=== PATIENT | male | born 1965 | race Caucasian/White ===

== ENCOUNTER 2020-04-15 06:12 | Outpatient (REF) | payer OTHER, SELFPAY ==
[2020-04-15 11:16] LABS: MANUAL DIFF FLAG NO
[2020-04-15 11:29] LABS: Basophils Percent Auto 0.4 % (0-2); Eosinophils Absolute Auto 0.1 X10*3/uL (0.0-0.4); Eosinophils Percent Auto 1.3 % (0-4); Hematocrit 42.9 % (42-52); Hemoglobin 14.5 g/dl (14.0-18.0); Imm Gran Abs Auto 0.03 X10*3/uL (0.00-0.03); Imm Gran Pct Auto 0.4 % (0.0-0.4); Lymphocytes Absolute Auto 1.9 X10*3/uL (1.2-4.9); Lymphocytes Percent Auto 28.1 % (20-40); Mean Corpuscular HGB Conc 33.8 g/dl (31.0-36.0); Mean Corpuscular Volume 88.8 fL (80-98); Mean Platelet Volume 9.4 fL (9.4-12.4); Monocytes Absolute Auto 0.5 X10*3/uL (0.1-1.2); Monocytes Percent Auto 7.3 % (2-11); Neutrophils Absolute Auto 4.3 X10*3/uL (2.0-8.3); Neutrophils Percent Auto 62.5 % (45-73); Platelet Count 217 X10*3/uL (160-400); Red Blood Count 4.83 X10*6/uL (4.60-5.80); Red Cell Distribution Width 12.5 % (11.0-16.0); White Blood Count 6.9 X10*3/uL (4.8-10.8)
[2020-04-15 11:56] LABS: Alanine Aminotransferase 87 U/L (0-40); Albumin Level 4.1 g/dL (3.5-5.0); Alkaline Phosphatase 83 U/L (39-117); Anion Gap 12 (12-20); Aspartate Amino Transferase 47 U/L (5-37); Bilirubin Total 0.6 mg/dL (0.0-1.0); Blood Urea Nitrogen 16 mg/dL (9-16); Calcium 8.7 mg/dL (8.4-10.2); Carbon Dioxide 30 mmol/L (22-29); Chloride 103 mmol/L (96-108); Cholesterol 168 mg/dL; Estimated Glomerular Filt Rate > 60; Glucose Fasting 111 mg/dL (60-99); HDL Cholesterol 41 mg/dL; LDL Cholesterol Calculated 108 mg/dl; Potassium 3.9 mmol/l (3.3-5.1); Sodium 141 mmol/L (135-145); Total Protein 6.5 g/dL (6.5-8.0); Triglycerides 99 mg/dL
[2020-04-15 12:18] LABS: Prostate Specific Antigen 0.81 ng/mL (<0.05-4.0); Thyroid Stimulating Hormone 2.07 mIU/mL (0.32-4.0); Vitamin D 25-OH Total 32.7 ng/mL (>30)
== END 2020-04-15 06:13 | disposition home or self-care (01) ==
LOC: HO.HMGCLDS 06:12
PROVIDERS: PCP Internal Medicine; Visit Provider Internal Medicine
DX: I10 Essential (primary) hypertension (principal); E55.9 Vitamin D deficiency, unspecified; E66.01 Morbid (severe) obesity due to excess calories
CPT/HCPCS: 36415; 80053; 80061; 82306; 84153; 84443; 85025

== ENCOUNTER 2021-03-25 06:02 | Outpatient (REF) | payer OTHER, SELFPAY ==
[2021-03-25 11:29] LABS: Appearance Urine CLOUDY; Color Urine YELLOW; Glucose Urine UA NEG (NEG); Leukocyte Esterase Urine NEG (NEG); MANUAL DIFF FLAG NO; Nitrite Urine NEG (NEG); Specific Gravity - Urine >= 1.030 (1.005-1.025); Urine Blood NEG (NEG); Urine Ketones NEG (NEG); Urine Protein 1+ MG/DL (NEG-TRACE)
[2021-03-25 11:35] LABS: Basophils Percent Auto 0.6 % (0-2); Eosinophils Absolute Auto 0.1 X10*3/uL (0.0-0.4); Eosinophils Percent Auto 1.1 % (0-4); Hematocrit 42.8 % (42-52); Hemoglobin 14.5 g/dl (14.0-18.0); Imm Gran Abs Auto 0.04 X10*3/uL (0.00-0.03); Imm Gran Pct Auto 0.6 % (0.0-0.4); Lymphocytes Absolute Auto 2.3 X10*3/uL (1.2-4.9); Lymphocytes Percent Auto 31.6 % (20-40); Mean Corpuscular HGB Conc 33.9 g/dl (31.0-36.0); Mean Corpuscular Hemoglobin 30.3 pg (27.0-33.0); Mean Corpuscular Volume 89.4 fL (80-98); Mean Platelet Volume 9.5 fL (9.4-12.4); Monocytes Absolute Auto 0.6 X10*3/uL (0.1-1.2); Monocytes Percent Auto 8.1 % (2-11); Neutrophils Absolute Auto 4.2 X10*3/uL (2.0-8.3); Platelet Count 227 X10*3/uL (160-400); Red Blood Count 4.79 X10*6/uL (4.60-5.80); Red Cell Distribution Width 12.8 % (11.0-16.0); White Blood Count 7.3 X10*3/uL (4.8-10.8)
[2021-03-25 11:55] LABS: Alanine Aminotransferase 71 U/L (0-40); Albumin Level 4.2 g/dL (3.5-5.0); Alkaline Phosphatase 83 U/L (39-117); Anion Gap 14 (12-20); Aspartate Amino Transferase 55 U/L (5-37); Bilirubin Total 0.5 mg/dL (0.0-1.0); Blood Urea Nitrogen 17 mg/dL (9-16); Calcium 8.8 mg/dL (8.4-10.2); Carbon Dioxide 25 mmol/L (22-29); Chloride 106 mmol/L (96-108); Cholesterol 155 mg/dL; Estimated Glomerular Filt Rate > 60; Glucose Fasting 114 mg/dL (60-99); HDL Cholesterol 35 mg/dL; LDL Cholesterol Calculated 101 mg/dl; Potassium 3.9 mmol/L (3.3-5.1); Sodium 141 mmol/L (135-145); Total Protein 6.8 g/dL (6.5-8.0); Triglycerides 97 mg/dL
[2021-03-25 12:08] LABS: PSA,Total (Free>4and<10) 0.42 ng/mL (0.00-4.00); Thyroid Stimulating Hormone 2.34 uIU/mL (0.32-4.0); Vitamin D 25-OH Total 34.9 ng/mL (>30)
[2021-03-25 12:16] LABS: Amorphous Sediment Urine 3+ /LPF; Mucus Urine 3+ /LPF; RBC Urine 0 /HPF (0); WBC Urine 0 /HPF (0-4)
== END 2021-03-25 06:03 | disposition home or self-care (01) ==
LOC: HO.HMGCLDS 06:02
PROVIDERS: PCP Internal Medicine; Visit Provider Internal Medicine
DX: Z00.00 Encounter for general adult medical examination without abnormal findings (principal); Z12.5 Encounter for screening for malignant neoplasm of prostate; I10 Essential (primary) hypertension; I49.9 Cardiac arrhythmia, unspecified; E66.01 Morbid (severe) obesity due to excess calories; E55.9 Vitamin D deficiency, unspecified
CPT/HCPCS: 36415; 80053; 80061; 81001; 82306; 84153; 84443; 85025

== ENCOUNTER → 2022-04-03 07:23 | Outpatient (REF) | payer OTHER, SELFPAY ==
--- NOTE | 2022-04-03 07:27 | HM_ITS ---
* Total monitoring time 2 days and 21 hours. * Underlying rhythm is atrial fibrillation. Average rate 84/Min. Range 53 to 212/min. * About 8% the time, rate > 100/Min. * Frequent PVCs noted with a burden of 3%. Some couplets, some runs, longest 4 beats. Cannot exclude aberrant conduction in some areas.. * No significant bradycardia or pauses. * No patient diary. * Message left with answering service of , ordering physician. [facility]
== END ==
LOC: HO.CARD 07:23
PROVIDERS: PCP Internal Medicine; Visit Provider Internal Medicine
DX: I49.9 Cardiac arrhythmia, unspecified (principal); I10 Essential (primary) hypertension
CPT/HCPCS: 93242

== ENCOUNTER → 2022-04-12 06:08 | Outpatient (REF) | payer OTHER, SELFPAY ==
[2022-04-12 11:17] LABS: Appearance Urine Clear; Color Urine Yellow; Glucose Urine UA Negative (Negative); Leukocyte Esterase Urine Trace (Negative); Nitrite Urine Negative (Negative); PH 5.5 (5.0-9.0); Specific Gravity - Urine 1.025 (1.005-1.025); UMIC TRIGGER UA YES; Urine Blood Negative (Negative); Urine Ketones Negative (Negative); Urine Protein 30 (1+) mg/dL (Neg-Trace)
[2022-04-12 11:19] LABS: MANUAL DIFF FLAG NO
[2022-04-12 11:24] LABS: Bacteria Urine None Seen (None Seen); Hyaline Casts Urine 0-2 /LPF (0-2); RBC Urine 0-2 /HPF (0-2); Squamous Epithelial Cell Urine 0-2 /HPF (0-2); WBC Urine 0-5 /HPF (0-5)
[2022-04-12 11:27] LABS: Basophils Percent Auto 0.4 % (0-2); Eosinophils Absolute Auto 0.1 X10*3/uL (0.0-0.4); Hematocrit 43.7 % (42.0-52.0); Hemoglobin 15.3 g/dl (14.0-18.0); Imm Gran Abs Auto 0.03 X10*3/uL (0.00-0.03); Imm Gran Pct Auto 0.4 % (0.0-0.4); Lymphocytes Absolute Auto 1.9 X10*3/uL (1.2-4.9); Lymphocytes Percent Auto 26.5 % (20-40); Mean Corpuscular Hemoglobin 30.8 pg (27.0-33.0); Mean Corpuscular Volume 87.9 fL (80.0-98.0); Mean Platelet Volume 9.3 fL (9.4-12.4); Monocytes Absolute Auto 0.6 X10*3/uL (0.1-1.2); Neutrophils Absolute Auto 4.4 x10*3/uL (2.0-8.3); Neutrophils Percent Auto 63.7 % (45-73); Platelet Count 216 X10*3/uL (160-400); Red Blood Count 4.97 X10*6/uL (4.60-5.80); Red Cell Distribution Width 11.9 % (11.0-16.0)
[2022-04-12 11:46] LABS: Alanine Aminotransferase 36 U/L (0-40); Albumin Level 4.2 g/dL (3.5-5.0); Alkaline Phosphatase 64 U/L (39-117); Anion Gap 15 (12-20); Aspartate Amino Transferase 28 U/L (5-37); Bilirubin Total 0.6 mg/dL (0.0-1.0); Blood Urea Nitrogen 18 mg/dL (9-16); Carbon Dioxide 24 mmol/L (22-29); Chloride 106 mmol/L (96-108); Cholesterol 157 mg/dL; Estimated Glomerular Filt Rate > 60; Glucose Fasting 115 mg/dL (60-99); HDL Cholesterol 40 mg/dL; LDL Cholesterol Calculated 105 mg/dl; Potassium 3.7 mmol/L (3.3-5.1); Sodium 141 mmol/L (135-145); Total Protein 6.6 g/dL (6.5-8.0); Triglycerides 63 mg/dL
[2022-04-12 12:38] LABS: Thyroid Stimulating Hormone 2.11 uIU/mL (0.32-4.0); Vitamin D 25-OH Total 32.7 ng/mL (>30)
[2022-04-12 13:09] LABS: PSA,Total (Free>4and<10) 0.37 ng/mL (0.00-4.00)
--- NOTE | 2022-04-12 13:11 | CA_ITS ---
Transthoracic Echocardiogram Patient (Last, First, Middle): Bryan Mcmullen D Gender: Male Date of : 1965 Age: 56 Procedure Date: 04/12/2022 Procedure Type: Transthoracic Echocardiogram Location: OP Height: 175.26 cm Weight: 124.74 kg BSA: 2.37 m2 Heart Rate: 80 bpm BP: 144 / 80 mmHg Associate Data Scientist: Referring MD: Lalito Jones DO Symptoms: I10 HTN, I49.9 VENTRICULAR BIGEMINY Study Quality: Adequate ECG Rhythm: Atrial Fibrillation Conclusions: - The left ventricular systolic function is moderately decreased. The calculated ejection fraction is 34% by biplane method. - No obvious valvular pathology seen on this study. Findings Left Ventricle Normal left ventricular cavity size. The left ventricular systolic function is moderately decreased. The calculated ejection fraction is 34% by biplane method. There is moderate global hypokinesis. Diastolic function is indeterminate on the basis of available data. There is mild septal and mild basal asymmetric hypertrophy. Right Ventricle Normal right ventricular cavity size. There is mildly decreased right ventricular systolic function. Atria The left atrium is mildly dilated. The right atrium is normal in size. Aortic Valve There is a normal trileaflet aortic valve. There is no aortic valve stenosis. There is no aortic valve regurgitation. Mitral Valve There is mild mitral annular calcification. There is mild mitral valve regurgitation. There is no mitral valve stenosis. Pulmonic Valve The pulmonic valve is likely normal. There is trace pulmonic valve regurgitation. Tricuspid Valve Normal tricuspid valve structure. There is mild tricuspid valve regurgitation. There is no evidence of pulmonary hypertension. Great Vessels The asc aorta is normal in size. Venous The inferior vena cava is mildly dilated and collapses greater than 50% with inspiration. Pericardium/Pleural There is no evidence of pericardial effusion. Prior Study Comparison Changes noted compared to prior study dated: 02/18/2019. Decrease in LVEF. Recommendations, Care & Conclusions No obvious valvular pathology seen on this study. Measurements 2D Linear Measurements IVSd: 1.08 0.6-0.9/0.6-1.0 cm LVIDd: 5.74 3.9-5.3/4.2-5.9 cm LVIDd Index: 2.42 2.4-3.2/2.2-3.1 cm/m2 LVIDs: 3.94 2.0-3.6 cm LVPWd: 0.86 0.7-1.1 cm LA Diam: 4.70 2.7-3.8/3.0-4.0 cm LAIDs Index: 1.98 1.5-2.3 cm/m2 LV Mass: 274.24 67-162/88-224 g LV Mass Index: 115.71 43-95/49-115 g/m2 LVOT Diam: 2.30 3.0+(-)1.3 cm 2D Systolic Function EF 4C: 30.90 >55% EF 2C: 37.50 >55% EF BiP: 34.20 >55% Mitral Valve MV Pk E: 1.04 MV Decel Time: 121.00 E'Lateral: 13.30 E'Medial: 7.07 E/E' Med: 14.70 E/E' Lat: 7.80 PHT: 35.00 MVA PHT: 6.29 Decel [place]: 8.61 Aortic Valve AoV Pk Alberto: 1.48 AoV Mn Alberto: 0.90 AoV VTI: 0.32 AoV Pk Grad: 9.00 Aov Mn Grad: 4.00 MARA Cont.VTI: 1.75 LVOT LVOT Pk Alberto: 0.73 LVOT Mn Alberto: 0.48 LVOT VTI: 0.13 LVOT Pk Grad: 2.00 LVOT Mn Grad: 1.00 LVOT Diam: 2.30 LVOT Area: 4.15 Diastolic Function MV Pk E: 1.04 E'Medial: 7.07 E/E' Med: 14.70 E' Laterial: 13.30 E/E' Lat: 7.80 Tricuspid Valve TR Pk Alberto: 2.50 TR Pk Grad: 25.00 RA Press: 8.00 RVSP: 33.00 Great Vessels Aorta Ao Asc: 3.80 2.1-3.4 cm Pulmonary Valve PV Pk Alberto: 0.77 Peak PV Grad: 2.00 Updated in Other Vendor System with Status of Final Kameron Dominguez MD electronically signed on 04/13/2022 2:59:18 PM with status of Final
[2022-04-12 14:57] LABS: Prothrombin Time 11.9 SEC (10.0-13.1)
== END ==
LOC: HO.CARD 06:08
PROVIDERS: Internal Medicine; PCP Internal Medicine; Visit Provider Internal Medicine
DX: Z00.00 Encounter for general adult medical examination without abnormal findings (principal); Z12.5 Encounter for screening for malignant neoplasm of prostate; I48.91 Unspecified atrial fibrillation; I10 Essential (primary) hypertension; I49.9 Cardiac arrhythmia, unspecified; E55.9 Vitamin D deficiency, unspecified; E66.01 Morbid (severe) obesity due to excess calories
CPT/HCPCS: 36415; 80053; 80061; 81001; 82306; 84153; 84443; 85025; 85610; 93005; 93306

== ENCOUNTER → 2022-05-08 15:47 | Outpatient (REF) | payer OTHER, SELFPAY | LOC: HO.SL 15:47 | PROVIDERS: PCP Internal Medicine; Visit Provider Internal Medicine | DX: G47.33 Obstructive sleep apnea (adult) (pediatric) (principal); I48.91 Unspecified atrial fibrillation | CPT/HCPCS: 95806 ==

== ENCOUNTER 2022-05-24 06:53 | Day surgery (SDC) | payer OTHER, SELFPAY ==
[2022-05-17 09:30] VITALS: BMI 40.6
--- NOTE | 2022-05-23 08:56 | P.CONAN_ITS ---
Documented by User: Libby Barraza NP 05/23/22 08:58 HPI - Anesthesia Eval Consult details Narrative: 56yo M for Cardioversion Eliquis for afib PMFSH Active Problems Active Problems: All Active Problems (Updated 05/17/22 @ 09:23 by Marleni Anaya RN) Atrial fibrillation with rapid ventricular response (Acute) PVC (premature ventricular contraction) (Acute) Morbid obesity (Acute) Essential hypertension (Acute) Past Medical History Medical History Atrial fibrillation Essential hypertension Morbid obesity PVC (premature ventricular contraction) Family History Family History Father Aortic stenosis S/P aortic valve repair Coronary artery disease Obesity Diabetes Mother Multiple sclerosis Surgical History Surgical History H/O colonoscopy History of arthroscopy of left knee History of arthroscopy of right knee History of colon resection History of hernia repair History of tonsillectomy History of wisdom tooth extraction Hx of appendectomy Hx of rotator cuff surgery Social History Social History Patient Tobacco Use Status: Never used Tobacco Are you DNR?: No Advance Directives: No Advance Directives Information Provided: Yes Recently lost weight without trying: No Meds Allergies Allergy/AdvReac Type Severity Reaction Status Date / Time Penicillins [PENICILLINS] Allergy Intermediate diarrhea/GI Verified 05/17/22 09:19 upset Home Medications Medication Instructions Recorded Confirmed Last Taken Type hydrochlorothiazide 25 mg tablet 25 mg PO DAILY 04/12/22 05/17/22 05/23/22 History lisinopril 40 mg tablet 40 mg PO DAILY 04/12/22 05/17/22 05/23/22 History amlodipine 5 mg tablet 1 tab PO DAILY 05/24/22 05/24/22 05/23/22 History Exam Exam Date and Time: May 23, 2022 0856 Height,Weight and Vital Signs: Height 5 ft 9 in Weight 124.8 kg Pertinent Lab Results Pertinent Lab Results: Laboratory Tests 04/12/22 04/12/22 06:19 06:19 WBC 7.0 Hgb 15.3 Hct 43.7 Plt Count 216 Sodium 141 Potassium 3.7 Chloride 106 Carbon Dioxide 24 BUN 18 H Creatinine 0.80 Narrative Narrative: EKG 04/2022 atrial fibrillation at 88/Min; rightward axis; no significant ST-T changes and otherwise unremarkable ECHO 04/2022 Conclusions: - The left ventricular systolic function is moderately decreased. The calculated ejection fraction is 34% by biplane method. ? ? ? - No obvious valvular pathology seen on this study.? Findings Left Ventricle Normal left ventricular cavity size.? The left ventricular systolic function is moderately decreased.? The calculated ejection fraction is 34% by biplane method.? There is moderate global hypokinesis.? Diastolic function is indeterminate on the basis of available data.? There is mild septal and mild basal asymmetric hypertrophy. Assessment and Plan Assessment Anesthesia Assessment: Chart Reviewed Documented by User: Lesa Klein MD 05/24/22 08:31 [facility] Past Medical History Medical History Atrial fibrillation Essential hypertension Morbid obesity PVC (premature ventricular contraction) Functional capacity: independent ambulation Family History Family History Father Aortic stenosis S/P aortic valve repair Coronary artery disease Obesity Diabetes Mother Multiple sclerosis Surgical History Surgical History H/O colonoscopy History of arthroscopy of left knee History of arthroscopy of right knee History of colon resection History of hernia repair History of tonsillectomy History of wisdom tooth extraction Hx of appendectomy Hx of rotator cuff surgery History of Problems with Anesthesia: No Social History Social History Patient Tobacco Use Status: Never used Tobacco Are you DNR?: No Advance Directives: No Advance Directives Information Provided: Yes Recently lost weight without trying: No Meds Allergies Allergy/AdvReac Type Severity Reaction Status Date / Time Penicillins [PENICILLINS] Allergy Intermediate diarrhea/GI Verified 05/17/22 09:19 upset Home Medications Medication Instructions Recorded Confirmed Last Taken Type hydrochlorothiazide 25 mg tablet 25 mg PO DAILY 04/12/22 05/17/22 05/23/22 History lisinopril 40 mg tablet 40 mg PO DAILY 04/12/22 05/17/22 05/23/22 History amlodipine 5 mg tablet 1 tab PO DAILY 05/24/22 05/24/22 05/23/22 History Exam Airway Mallampati Class: III TM Dist: >3cm Neck ROM: Full Heart: RRR Lungs: CTA Assessment and Plan Final Anesthetic Review History of Problems with Anesthesia: No ASA Class: II Final Preanesthetic Review: Meds/Allgs Chart Reviewed, Consent Obtained/Reviewed and Anes Risks/Benef Reviewed Patient Risk: Intermediate Procedure Risk: Low Anesthetic Plan Anesthetic Plan: GA Disposition: Standard PACU
[2022-05-24] VITALS (10 sets, daily range): BP systolic 108–149; BP diastolic 60–96; PULSE 55–65; RESP 14–20; TEMP 36.2–36.6; O2SAT 95–97
[2022-05-24] MEDS: Lactated Ringers 1,000 ML 50 ML IVCONT (07:30)
--- NOTE | 2022-05-24 08:29 | MHC.SHP ---
Pre-Procedural Eval Section A Date of Service: 05/24/22 The patient is an INPATIENT: No Section B Chief Complaint: Unspecified atrial fibrillation Details of Present Illness: Recently detected atrial fibrillation with rapid rates on holter. Here for cardioversion. Relevant Family History (Specify if Yes): No Relevant Social History: None Present Medications: see Short Stay Collaborative assessment Medical History: No relevant PMH History of Previous Operations: No relevant previous surgery Allergies: Allergies Allergy/AdvReac Type Severity Reaction Status Date / Time Penicillins [PENICILLINS] Allergy Intermediate diarrhea/GI Verified 05/17/22 09:19 upset Review of Systems Review of Systems Comment: Cardiac- no symptoms; reminder of systems also negative. Exam Exam Comment: AAO x3; HEENT - normal Neck- normal Cardiac- S1-S2+; otherwise normal. Resp/abd/[employer]- normal exam. Plan I have reviewed the history and physical and performed a pertinent physical examination on my patient. No changes have occurred unless specified.
--- NOTE | 2022-05-24 08:46 | ECG_ITS ---
Test Reason : post op Blood Pressure : / mmHG Vent. Rate : 058 BPM Atrial Rate : 058 BPM P-R Int : 180 ms QRS Dur : 086 ms QT Int : 410 ms P-R-T Axes : 010 058 044 degrees QTc Int : 402 ms Sinus bradycardia Nonspecific ST and T wave abnormality Abnormal ECG When compared with ECG of 14-JUN-2018 06:56, Premature ventricular complexes are no longer Present Nonspecific T wave abnormality now evident in Lateral leads QT has shortened Referred By: Kameron Dominguez Electronically Signed By:YOLANDA JUAREZ MD
--- NOTE | 2022-05-24 08:46 | HO.CARDIVERS ---
Cardioversion Procedure Note Cardioversion Date of Procedure: 05/24/2022 Ordering Provider: Dr. Dominguez Performing Provider: Dr. Dominguez Indication for Procedure: Atrial fibrillation with rapid rate Pre-Op Diagnosis: Atrial fibrillation Post-Op Diagnosis: Sinus rhythm History: See full office note. Consent: Informed consent obtained. Procedure: After informed consent was obtained, patient was taken to the PACU. The patient was then positioned appropriately. The cardioversion pads were placed in anteroposterior position. Once under anesthesia, 120 joules of synchronized shock was administered. The rhythm converted from atrial fibrillation to sinus rhythm. Patient remained in sinus rhythm after the end of procedure. Complications: None. Impression: Successful cardioversion from atrial fibrillation to sinus rhythm. Recommendations: Decrease beta-gunjan dose. Start Multaq. Follow-up with sleep medicine for CPAP.
--- NOTE | 2022-05-24 09:04 | HO.POSTANES ---
Post Anesthesia Evaluation Post Anesthesia Evaluation Vital Signs: Vital Signs Temp Pulse Resp BP Pulse Ox O2 Del Method 05/24/22 07:30 134/95 H 05/24/22 07:06 97.1 F 65 18 149/89 H 96 Room Air Anesthesia: General Mental Status: Awake Pain Control: Satisfactory Nausea/Vomiting: None Hydration: Adequate Anesthesia-Related Issues: No Anes. Related Issues
[2022-05-24] MEDS: Dronedarone HCl 400 MG TABLET PO (10:06)
== END 2022-05-24 10:30 | disposition home or self-care (01) ==
PROVIDERS: PCP Internal Medicine; Visit Provider Internal Medicine
PROC: 5A2204Z Restoration of Cardiac Rhythm, Single (ICD-10-PCS; principal; 2022-05-24 08:30)
DX: I48.91 Unspecified atrial fibrillation (principal); I10 Essential (primary) hypertension; Z79.01 Long term (current) use of anticoagulants; Z79.899 Other long term (current) drug therapy; Z88.0 Allergy status to penicillin
CPT/HCPCS: 92960; 93005; J0171; J0461

== ENCOUNTER → 2022-05-29 10:06 | Outpatient (BNVA) | payer OTHER, SELFPAY | PROVIDERS: PCP Internal Medicine; Visit Provider Internal Medicine | DX: I48.91 Unspecified atrial fibrillation (principal); I45.81 Long QT syndrome; Z95.0 Presence of cardiac pacemaker; Z98.890 Other specified postprocedural states; Z79.899 Other long term (current) drug therapy | CPT/HCPCS: 93005 ==

== ENCOUNTER → 2022-06-12 14:54 | Outpatient (REF) | payer OTHER, SELFPAY ==
--- NOTE | 2022-06-12 14:56 | HM_ITS ---
* Underlying rhythm is atrial fibrillation. * Average ventricular rate 79/Min. Range 59-131/Min. Only about 0.7% of the time, rate more than 100/Min. * No significant bradycardia or pauses or AV blocks. * Occasional PVCs, low burden. * Overall, well controlled atrial fibrillation. * Patient diary not submitted. MTDD
== END ==
LOC: HO.CARD 14:54
PROVIDERS: PCP Internal Medicine; Visit Provider Internal Medicine
DX: I48.91 Unspecified atrial fibrillation (principal)
CPT/HCPCS: 93242

== ENCOUNTER → 2022-06-13 14:13 | Outpatient (BNVA) | payer OTHER, SELFPAY | PROVIDERS: PCP Internal Medicine; Referring Provider Internal Medicine; Visit Provider Internal Medicine | DX: I48.19 Other persistent atrial fibrillation (principal); I42.9 Cardiomyopathy, unspecified; I49.3 Ventricular premature depolarization; I10 Essential (primary) hypertension; G47.33 Obstructive sleep apnea (adult) (pediatric); E66.01 Morbid (severe) obesity due to excess calories; Z68.41 Body mass index [BMI] 40.0-44.9, adult | CPT/HCPCS: 93005 ==

== ENCOUNTER → 2022-08-11 14:56 | Outpatient (REF) | payer OTHER, SELFPAY ==
--- NOTE | 2022-08-11 15:00 | CA_ITS ---
Transthoracic Echocardiogram Patient (Last, First, Middle): Bryan Mcmullen D Gender: Male Date of : 1965 Age: 57 Procedure Date: 08/11/2022 Procedure Type: Transthoracic Echocardiogram Location: OP Height: 175.26 cm Weight: 117.94 kg BSA: 2.31 m2 Heart Rate: bpm BP: 130 / 90 mmHg Residence Hall Director: TO Referring MD: Kameron Dominguez MD Safety Equipment Testing Specialist: Matteo Vidal MD Symptoms: I42.9 - Cardiomyopathy, unspecified Study Quality: Fair/Contrast ECG Rhythm: Atrial Fibrillation Conclusions: - 1. Mildly reduced LV systolic function with LVEF of 45-50% with mildly dilated left ventricle 2. At least moderately enlarged left atrium 3. Mild mitral regurgitation 4. Normal calculated RV systolic pressure 5. Mildly dilated ascending aorta 3.9 cm 6. No gross pericardial effusion Findings Procedure Information Contrast agent, definity, is being given per protocol without apparent complications. Left Ventricle Mildly increased left ventricular cavity size. There is normal left ventricular wall thickness. The left ventricular systolic function is mildly decreased. The visually estimated ejection fraction is between 45-50%. Diastolic function is indeterminate on the basis of available data. Right Ventricle Mildly increased right ventricular cavity size. There is normal right ventricular systolic function. Atria The left atrium is moderately dilated. There is lipomatous hypertrophy of the interatrial septum. There is no evidence of interatrial shunt. The right atrium is mildly dilated. Aortic Valve The aortic valve was not well visualized. There is mild calcification of the aortic valve. There is no aortic valve stenosis. There is no aortic valve regurgitation. Mitral Valve There is mild anterior and posterior mitral leaflet thickening. There is mild mitral annular calcification. There is mild mitral valve regurgitation. There is no mitral valve stenosis. Pulmonic Valve The pulmonic valve is likely normal. There is trace to mild pulmonic valve regurgitation. Tricuspid Valve Normal tricuspid valve structure. There is mild tricuspid valve regurgitation. The right ventricular systolic pressure is normal. The right ventricular systolic pressure is 22 mmHg. Normal right atrial pressure. There is no evidence of pulmonary hypertension. Great Vessels The pulmonary artery was not well visualized. There is mild dilatation of the ascending aorta measuring 3.90 cm. Venous The inferior vena cava is normal in size and collapses greater than 50% with inspiration. Pericardium/Pleural There is no evidence of pericardial effusion. Prior Study Comparison Changes noted compared to prior study dated: 04/12/2022. LV systolic function is improved Measurements 2D Linear Measurements IVSd: 1.05 0.6-0.9/0.6-1.0 cm LVIDd: 5.93 3.9-5.3/4.2-5.9 cm LVIDd Index: 2.57 2.4-3.2/2.2-3.1 cm/m2 LVIDs: 4.08 2.0-3.6 cm LVPWd: 0.97 0.7-1.1 cm LA Diam: 4.50 2.7-3.8/3.0-4.0 cm LAIDs Index: 1.95 1.5-2.3 cm/m2 LV Mass: 304.70 67-162/88-224 g LV Mass Index: 131.91 43-95/49-115 g/m2 LVOT Diam: 2.30 3.0+(-)1.3 cm 2D Systolic Function EF 4C: 45.20 >55% EF 2C: 46.20 >55% EF BiP: 45.10 >55% Mitral Valve MV Pk E: 1.03 MV Decel Time: 218.00 E'Lateral: 10.00 E'Medial: 7.40 E/E' Med: 13.90 E/E' Lat: 10.30 PHT: 64.00 MVA PHT: 3.44 Decel [place]: 4.71 Aortic Valve AoV Pk Alberto: 1.64 AoV Pk Grad: 11.00 LVOT LVOT Pk Alberto: 0.87 LVOT Mn Alberto: 0.60 LVOT VTI: 0.16 LVOT Pk Grad: 3.00 LVOT Mn Grad: 2.00 LVOT Diam: 2.30 LVOT Area: 4.15 Diastolic Function MV Pk E: 1.03 E'Medial: 7.40 E/E' Med: 13.90 E' Laterial: 10.00 E/E' Lat: 10.30 Right Ventricle TAPSE (mm): 21.20 TVS' Alberto: 10.35 Tricuspid Valve TR Pk Alberto: 2.18 TR Pk Grad: 19.00 RA Press: 3.00 RVSP: 22.00 Great Vessels Aorta Sinus of Valsalva: 3.51 2.0-3.5 cm Ao Asc: 3.90 2.1-3.4 cm Updated in Other Vendor System with Status of Final Matteo Vidal MD electronically signed on 08/14/2022 4:36:24 PM with status of Final
== END ==
LOC: HO.CARD 14:56
PROVIDERS: Visit Provider Internal Medicine
DX: I42.9 Cardiomyopathy, unspecified (principal)
CPT/HCPCS: 93306; Q9957

== ENCOUNTER → 2022-10-03 15:34 | Outpatient (BNVA) | payer OTHER, SELFPAY | PROVIDERS: PCP Internal Medicine; Visit Provider Nurse Practitioner Family | DX: Z13.89 Encounter for screening for other disorder (principal) ==

== ENCOUNTER → 2022-10-12 14:44 | Outpatient (BNVA) | payer OTHER, SELFPAY | PROVIDERS: PCP Internal Medicine; Referring Provider Internal Medicine; Visit Provider Internal Medicine | DX: Z13.89 Encounter for screening for other disorder (principal) ==

== ENCOUNTER → 2023-01-29 13:55 | Outpatient (REF) | payer OTHER, SELFPAY ==
--- NOTE | 2023-01-29 14:00 | HM_ITS ---
Conclusion: 1. Patient was monitored for total period of 2 days and 22 hours 2. Baseline was atrial fibrillation with average heart of 80 beats per minute with good rate control 3. Frequent PVCs noted with total burden of 1.8% 4. No significant pauses noted 5. Patient marked the diary 3 times without any symptoms correlating with atrial fibrillation MTDD
--- NOTE | 2023-01-29 14:00 | CA_ITS ---
Transthoracic Echocardiogram Patient (Last, First, Middle): Bryan Mcmullen D Gender: Male Date of : 1965 Age: 57 Procedure Date: 01/29/2023 Procedure Type: Transthoracic Echocardiogram Location: OP Height: 172.72 cm Weight: 117.94 kg BSA: 2.29 m2 Heart Rate: bpm BP: 122 / 88 mmHg Assistant Inventory Manager: ALANNA Referring MD: Kameron Dominguez MD Symptoms: I42.9 - Cardiomyopathy, unspecified Study Quality: Fair, contrast ECG Rhythm: Atrial Fibrillation Conclusions: - The left ventricular systolic function is normal. The calculated ejection fraction is 56% by biplane method. - The left atrium is severely dilated. - There is mild calcification of the aortic valve. - There is mild mitral annular calcification. Findings Procedure Information Contrast agent, definity, is being given per protocol without apparent complications. Left Ventricle Normal left ventricular cavity size. There is mildly increased left ventricular wall thickness. The left ventricular systolic function is normal. The calculated ejection fraction is 56% by biplane method. There is no evidence of regional wall motion abnormalities. Diastolic function is indeterminate on the basis of available data. Right Ventricle Mildly increased right ventricular cavity size. There is low normal right ventricular systolic function. Atria The left atrium is severely dilated. The right atrium is mildly dilated. Aortic Valve There is a normal trileaflet aortic valve. There is mild calcification of the aortic valve. There is no aortic valve stenosis. There is no aortic valve regurgitation. Mitral Valve There is mild mitral annular calcification. There is trace mitral valve regurgitation. There is no mitral valve stenosis. Pulmonic Valve The pulmonic valve is likely normal. Tricuspid Valve There is mild tricuspid valve regurgitation. There is no evidence of pulmonary hypertension. Great Vessels The asc aorta is normal in size. Venous The inferior vena cava is normal in size and collapses greater than 50% with inspiration. Pericardium/Pleural There is no evidence of pericardial effusion. Prior Study Comparison Changes noted compared to prior study dated: 08/11/2022. LVEF slightly better. Measurements 2D Linear Measurements IVSd: 1.20 0.6-0.9/0.6-1.0 cm LVIDd: 5.10 3.9-5.3/4.2-5.9 cm LVIDd Index: 2.23 2.4-3.2/2.2-3.1 cm/m2 LVIDs: 3.60 2.0-3.6 cm LVPWd: 1.20 0.7-1.1 cm LA Diam: 4.30 2.7-3.8/3.0-4.0 cm LAIDs Index: 1.88 1.5-2.3 cm/m2 LV Mass: 300.79 67-162/88-224 g LV Mass Index: 131.35 43-95/49-115 g/m2 LVOT Diam: 2.20 3.0+(-)1.3 cm 2D Systolic Function EF 4C: 62.80 >55% EF 2C: 49.30 >55% EF BiP: 56.10 >55% Mitral Valve MV Pk E: 1.02 MV Decel Time: 197.00 E'Lateral: 10.50 E'Medial: 6.26 E/E' Med: 16.30 E/E' Lat: 9.70 PHT: 58.00 MVA PHT: 3.79 Decel [place]: 5.26 Aortic Valve AoV Pk Alberto: 1.59 AoV Pk Grad: 10.00 LVOT LVOT Pk Alberto: 0.77 LVOT Pk Grad: 2.00 LVOT Diam: 2.20 LVOT Area: 3.80 Diastolic Function MV Pk E: 1.02 E'Medial: 6.26 E/E' Med: 16.30 E' Laterial: 10.50 E/E' Lat: 9.70 Right Ventricle TAPSE (mm): 19.90 TVS' Alberto: 12.70 Tricuspid Valve TR Pk Alberto: 2.51 TR Pk Grad: 25.00 RA Press: 3.00 RVSP: 28.00 Great Vessels Aorta Sinus of Valsalva: 3.60 2.0-3.[address] [place]: 2.60 1.7-3.4 cm Ao Asc: 3.70 2.1-3.4 cm Updated in Other Vendor System with Status of Final Kameron Dominguez MD electronically signed on 01/30/2023 11:04:50 AM with status of Final
== END ==
LOC: HO.CARD 13:55
PROVIDERS: PCP Internal Medicine; Visit Provider Internal Medicine
DX: I48.19 Other persistent atrial fibrillation (principal)
CPT/HCPCS: 93242; 93306; Q9957

== ENCOUNTER → 2023-01-29 14:00 | Outpatient (BNV) | payer OTHER, SELFPAY | PROVIDERS: PCP Internal Medicine; Visit Provider Internal Medicine | DX: I49.3 Ventricular premature depolarization (principal) | CPT/HCPCS: 93244; 93306 ==

== ENCOUNTER 2023-02-07 12:54 | Outpatient (AMB) | payer OTHER, SELFPAY ==
--- NOTE | 2023-02-07 12:58 | MHC.OFFVIS ---
Intake Vital Signs 02/07/23 13:00 Height 5 ft 8 in Weight 279 lb 1.683 oz BMI 42.4 BP 116/68 Blood Pressure Location Lt brachial Position Sitting Pulse 81 Intake Visit Reasons: FUP S/P ECHO + ETT DO EKG PREOP SHOULDER SURG. Intake Note: pre op Pathologist Assistant Required: No Accompanied by: Self / Same As Patient Allergies Penicillins [PENICILLINS] Allergy (Intermediate, Verified 02/07/23 13:01) diarrhea/GI upset Medication List - Last Reconciled 02/07/23 by Kameron Dominguez MD amlodipine 5 mg PO DAILY apixaban (Eliquis) 5 mg PO BID hydrochlorothiazide 50 mg PO QAM lisinopril 40 mg PO DAILY metoprolol succinate ER 100 mg PO BID 90 days HPI HPI Comments History of Present Illness Details Bryan returns for follow-up regarding atrial fibrillation. In 2019, he was seen for PVCs and was on a small dose of beta-gunjan. Last year, he had purchased a smart watch and that showed atrial fibrillation. Then Holter had shown atrial fibrillation with rapid rates. Subsequently, underwent cardioversion. However, did not last in sinus rhythm. Went back into atrial fibrillation very soon. Also diagnosed with obstructive sleep apnea and started CPAP. He has shoulder issues and going for surgery in a couple weeks. Otherwise, he is feeling pretty good. He states he has got unlimited physical activity and absolutely no limitations. No chest pains or any symptoms whatsoever. No palpitations. He states he has a recumbent bike at home and exercises regularly with no issues for more than 30 minutes. [facility] Medical History Atrial fibrillation Essential hypertension Morbid obesity PVC (premature ventricular contraction) Surgical History H/O colonoscopy History of arthroscopy of left knee History of arthroscopy of right knee History of colon resection History of hernia repair History of tonsillectomy History of wisdom tooth extraction Hx of appendectomy Hx of rotator cuff surgery Family History Father Aortic stenosis S/P aortic valve repair Coronary artery disease Obesity Diabetes Mother Multiple sclerosis Social History Alcohol intake: current Alcohol intake frequency: a few times a week Patient Tobacco Use Status: Never used Tobacco Review of Systems Const Denies weakness ENT Denies dizziness Card Denies chest pain, Denies chest pain with activity, Denies syncope, Denies rapid heart rate, Denies pedal edema, Denies edema, Denies leg edema, Denies lightheadedness, Denies palpitations, Denies dyspnea, Denies dyspnea on exertion and Denies orthopnea Resp Denies cough, Denies dyspnea and Denies dyspnea on exertion GI Denies hematochezia and Denies change in stool character Musc Denies abnormal gait, Denies muscle cramps, Denies muscle weakness, Denies numbness, Denies radiating pain into limb and Denies tingling Neuro Denies abnormal gait, Denies dizziness, Denies syncope, Denies numbness, Denies tingling and Denies weakness Endo Denies palpitations Physical Exam Vital Signs: Last Vital Signs Pulse 81 02/07/23 13:00 BP 116/68 02/07/23 13:00 BMI result Body Mass Index 42.4 Const General: comfortable and no acute distress Orientation/consciousness: patient oriented x3 HEENT Other: Unremarkable Head: Yes normal to inspection Neck Neck: Yes normal visual inspection Chest Chest palpation & inspection: normal inspection of the chest Resp Auscultation: clear to auscultation bilaterally Cardio Palpation: normal PMI Heart sounds: S1 normal heart sound present, S2 normal heart sound present, no gallops, no murmurs and no rubs GI Palpation (GI): Soft to palpation Back/Spine/Pelvis Other: unremarkable Skin General skin exam: no rashes or lesions noted Neuro General: patient oriented x3 Extrem General: Yes normal to inspection Psych Mental Status: mental status grossly normal Office Procedures EKG Details: EKG with atrial fibrillation rate of 81/Min; no significant ST-T changes and otherwise unremarkable. [id number], Complete Assessment & Plan Assessment & Plan (1) Persistent atrial fibrillation: Code(s): I48.19 - Other persistent atrial fibrillation Plan: We attempted cardioversion but failed. Likely all from some combination of weight, obstructive sleep apnea, enlarged atrium. We discussed about this again today but he states that he is not ready and would like to wait a few months. Overall likelihood of conversion to sinus as well as maintaining sinus would be low due to comorbidities. Also on echocardiogram, he has a large left atrial size. Clinically, no specific symptoms. Continue beta-blockers and anticoagulation. (2) Cardiomyopathy: Code(s): I42.9 - Cardiomyopathy, unspecified Plan: Initial echocardiogram with LVEF of 34%. In the repeat study, 45-50%. Most recently LVEF 56%. Clinically, he does not have symptoms or signs of congestive heart failure. Unlimited exercise tolerance. (3) PVC (premature ventricular contraction): Code(s): I49.3 - Ventricular premature depolarization Plan: No specific management for this. Already on beta-blockers. Weight loss could help the PVC burden as well. (4) Essential hypertension: Code(s): I10 - Essential (primary) hypertension Plan: On lisinopril/hydrochlorothiazide. Stable. (5) Morbid obesity: Code(s): E66.01 - Morbid (severe) obesity due to excess calories Plan: We discussed about weight and atrial fibrillation and he is well aware of the relationship. He will make efforts to lose weight. (6) AGATA (obstructive sleep apnea): Comment: Severe degree of sleep apnea. The total AHI was 45/hr and oxygen [place] was 65%. Code(s): G47.33 - Obstructive sleep apnea (adult) (pediatric) Plan: Continue CPAP. (7) Preoperative cardiovascular examination: Code(s): Z01.810 - Encounter for preprocedural cardiovascular examination Plan: Patient states he is going for shoulder surgery in 2 weeks. Low cardiac risk. May proceed. With regard to anticoagulation, hold for 2 days before surgery. Resume when cleared by surgeon. Coding Level of Care Code Est Pt Level 4 (16914) Diagnoses Persistent atrial fibrillation I48.19 Cardiomyopathy I42.9 PVC (premature ventricular contraction) I49.3 Essential hypertension I10 Morbid obesity E66.01 AGATA (obstructive sleep apnea) G47.33 Preoperative cardiovascular examination Z01.810 CPT Codes EKG - CPT: 18329-[id number], Complete ([id number])
[2023-02-07 13:00] VITALS: BP 116/68; PULSE 81; BMI 42.4
== END 2023-02-07 13:21 | disposition home or self-care (01) ==
PROVIDERS: PCP Internal Medicine; Visit Provider Internal Medicine
DX: I48.19 Other persistent atrial fibrillation (principal); I42.9 Cardiomyopathy, unspecified; I49.3 Ventricular premature depolarization; I10 Essential (primary) hypertension; E66.01 Morbid (severe) obesity due to excess calories; G47.33 Obstructive sleep apnea (adult) (pediatric); Z01.810 Encounter for preprocedural cardiovascular examination
CPT/HCPCS: 93010; 99214

== ENCOUNTER → 2023-02-07 12:54 | Outpatient (BNVA) | payer OTHER, SELFPAY | PROVIDERS: PCP Internal Medicine; Visit Provider Internal Medicine | DX: Z01.810 Encounter for preprocedural cardiovascular examination (principal); I48.19 Other persistent atrial fibrillation; I49.3 Ventricular premature depolarization; I42.9 Cardiomyopathy, unspecified; I10 Essential (primary) hypertension; G47.33 Obstructive sleep apnea (adult) (pediatric); E66.01 Morbid (severe) obesity due to excess calories; Z68.41 Body mass index [BMI] 40.0-44.9, adult; Z98.890 Other specified postprocedural states; Z99.89 Dependence on other enabling machines and devices | CPT/HCPCS: 93005 ==

== ENCOUNTER 2023-10-02 13:56 | Outpatient (AMB) | payer OTHER, SELFPAY ==
--- NOTE | 2023-10-02 13:59 | MHC.OFFVIS ---
Intake Vital Signs 10/02/23 14:00 Height 5 ft 8 in Weight 283 lb BMI 43.0 BP 122/78 Blood Pressure Location Rt brachial Position Sitting Pulse 101 H Pulse Source Pulse Oximeter Pulse Oximetry (%) 96 Oxygen Delivery Method Room Air Intake Visit Reasons: 1 yr f/u for AGATA - CONf w/chic address Intake Note: Patient presents for 1 year follow up AGATA Allergies Penicillins [PENICILLINS] Allergy (Intermediate, Verified 10/02/23 14:02) diarrhea/GI upset HPI HPI Comments History of Present Illness Details 58 y/o male patient presents for follow up of AGATA on CPAP. The CPAP compliance and therapy response (06/30/23-09/27/23) reviewed. He is on APAP [id number]. Days of usage was 97.8 % and the average usage hours 4 hours and 50 min. The max pressure was 11.7 and and the residual AHI was 3.9. Pt reports that he had new supplies yesterday. He sleeps much better, and daytime sleep has improved, and has more energy. He will f/u with cardiology for Afib this . [facility] Medical History Atrial fibrillation Essential hypertension Morbid obesity PVC (premature ventricular contraction) Surgical History Hx of rotator cuff surgery H/O colonoscopy Hx of appendectomy History of wisdom tooth extraction History of hernia repair History of colon resection History of tonsillectomy History of arthroscopy of right knee History of arthroscopy of left knee Family History Father Aortic stenosis S/P aortic valve repair Coronary artery disease Obesity Diabetes Mother Multiple sclerosis Social History Alcohol intake: current Alcohol intake frequency: a few times a week Patient Tobacco Use Status: Never used Tobacco Review of Systems Const All systems reviewed & are unremarkable except as noted in HPI and below ENT Reports Normal hearing present Neuro Reports Normal hearing present Physical Exam Vital Signs: Last Vital Signs Pulse 101 H 10/02/23 14:00 BP 122/78 10/02/23 14:00 Pulse Ox 96 10/02/23 14:00 Oxygen Delivery Method Room Air 04/02/24 14:00 BMI result Body Mass Index 43.0 Const General: cooperative and comfortable Nutritional Appearance: obese Orientation/consciousness: patient oriented x3 HEENT Throat: Yes other (mallapati grade 4) Neck Neck: Yes full ROM Resp Effort & Inspection: normal respiratory effort and able to speak in complete sentences Neuro General: patient oriented x3, gait normal and moves all extremities Cranial nerves: Yes Bilaterally intact EOM present, Yes Normal facial strength present, Yes Midline tongue present, Yes Symmetric palate elevation present, Yes Normal hearing present, Yes Ability to bilaterally rotate head present and Yes Ability to bilaterally elevate shoulders present Cognition (Neuro): normal cognition Motor exam (neuro): Pronator motor function not present and no tremor noted Psych Appearance: grossly normal Mental Status: mental status grossly normal Speech and movement: Normal speech and movement present Affect: normal affect Assessment & Plan Assessment & Plan (1) AGATA (obstructive sleep apnea): Comment: Severe degree of sleep apnea. The total AHI was 45/hr and oxygen [place] was 65%. Code(s): G47.33 - Obstructive sleep apnea (adult) (pediatric) Plan Advised patient to continue to use APAP [id number] as patient experiences good clinical effects. Stressed compliance, use CPAP nightly and more than 4 hours. Wt reduction advised. Coding Level of Care Code Est Pt Level 3 (64962) Diagnoses AGATA (obstructive sleep apnea) G47.33
[2023-10-02 14:00] VITALS: BP 122/78; PULSE 101; O2SAT 96; BMI 43.0
== END 2023-10-02 14:10 | disposition home or self-care (01) ==
LOC: HO.HSMC 13:56
PROVIDERS: PCP Internal Medicine; Visit Provider Nurse Practitioner Family
DX: G47.33 Obstructive sleep apnea (adult) (pediatric) (principal)
CPT/HCPCS: 99213

== ENCOUNTER → 2023-10-02 13:56 | Outpatient (BNVA) | payer OTHER, SELFPAY | PROVIDERS: PCP Internal Medicine; Visit Provider Nurse Practitioner Family ==

== ENCOUNTER 2023-10-04 14:45 | Outpatient (AMB) | payer OTHER, SELFPAY ==
[2023-10-04 14:46] VITALS: BP 130/70; PULSE 88; BMI 43.2
--- NOTE | 2023-10-04 14:46 | A.OFFVIS_ITS ---
Intake Vital Signs 10/04/23 14:46 Height 5 ft 8 in Weight 284 lb 6.341 oz BMI 43.2 BP 130/70 Blood Pressure Location Lt brachial Position Sitting Pulse 88 Intake Visit Reasons: pt req R/S of follow up Office Spec Required: No Accompanied by: Self / Same As Patient Allergies Penicillins [PENICILLINS] Allergy (Intermediate, Verified 10/02/23 14:02) diarrhea/GI upset Medication List - Last Reconciled 10/04/23 by Kameron Dominguez MD amlodipine 5 mg PO DAILY apixaban (Eliquis) 5 mg PO BID hydrochlorothiazide 50 mg PO QAM lisinopril 40 mg PO DAILY metoprolol succinate ER 100 mg PO BID HPI HPI Comments History of Present Illness Details Bryan returns for follow-up regarding atrial fibrillation. In 2018, he was seen for PVCs and was on a small dose of beta-gunjan. In 2021, he had purchased a smart watch and that showed atrial fibrillation. Then Holter had shown atrial fibrillation with rapid rates. Subsequently, underwent cardioversion. However, did not last in sinus rhythm. Went back into atrial fibrillation very soon. Also diagnosed with obstructive sleep apnea and started CPAP. Overall, he is feeling good. No specific complaints like angina or shortness of breath or in fact anything cardiac sounding. He states he has using a recumbent bike with no issues. Also lifting weights. No cardiac symptoms. [facility] Medical History PVC (premature ventricular contraction) Atrial fibrillation Essential hypertension Morbid obesity Surgical History Hx of rotator cuff surgery H/O colonoscopy Hx of appendectomy History of wisdom tooth extraction History of hernia repair History of colon resection History of tonsillectomy History of arthroscopy of right knee History of arthroscopy of left knee Family History Father Aortic stenosis S/P aortic valve repair Coronary artery disease Obesity Diabetes Mother Multiple sclerosis Social History Alcohol intake: current Alcohol intake frequency: a few times a week Patient Tobacco Use Status: Never used Tobacco Review of Systems Const Denies chills, Denies fatigue, Denies fever(s), Denies frequent falls, Denies weakness, Denies weight gain and Denies weight loss ENT Denies dizziness Card Denies chest pain, Denies leg edema, Denies lightheadedness, Denies palpitations, Denies dyspnea and Denies dyspnea on exertion Resp Denies cough, Denies dyspnea and Denies dyspnea on exertion GI Denies hematochezia Musc Denies abnormal gait, Denies muscle weakness, Denies numbness, Denies radiating pain into limb and Denies tingling Neuro Denies abnormal gait, Denies dizziness, Denies frequent falls, Denies numbness, Denies tingling and Denies weakness Endo Denies fatigue and Denies palpitations Physical Exam Vital Signs: Last Vital Signs Pulse 88 10/04/23 14:46 BP 130/70 10/04/23 14:46 BMI result Body Mass Index 43.2 Const General: comfortable and no acute distress Orientation/consciousness: patient oriented x3 HEENT Other: Unremarkable Head: Yes normal to inspection Neck Neck: Yes normal visual inspection Chest Chest palpation & inspection: normal inspection of the chest Resp Auscultation: clear to auscultation bilaterally Cardio Palpation: normal PMI Heart sounds: S1 normal heart sound present, S2 normal heart sound present, no gallops, no murmurs and no rubs GI Palpation (GI): Soft to palpation Back/Spine/Pelvis Other: unremarkable Skin General skin exam: no rashes or lesions noted Neuro General: patient oriented x3 Extrem General: Yes normal to inspection Psych Mental Status: mental status grossly normal Assessment & Plan Assessment & Plan (1) Persistent atrial fibrillation: Code(s): I48.19 - Other persistent atrial fibrillation Plan: Attempted cardioversion but failed. Likely all from some combination of weight, obstructive sleep apnea, enlarged atrium. We discussed another cardioversion but patient would like to just leave it as is. Overall suspect low likelihood of keeping in sinus due to various comorbidities. Remains on beta-blockers/Eliquis. (2) Cardiomyopathy: Code(s): I42.9 - Cardiomyopathy, unspecified Plan: Initial echocardiogram with LVEF of 34%. In the repeat study, 45-50%. Most recently LVEF 56%. Clinically, he does not have symptoms or signs of congestive heart failure. Able to exercise without issues. (3) PVC (premature ventricular contraction): Code(s): I49.3 - Ventricular premature depolarization Plan: No specific management for this. Already on beta-blockers. Weight loss could help the PVC burden as well. (4) Essential hypertension: Code(s): I10 - Essential (primary) hypertension Plan: On lisinopril/hydrochlorothiazide. Stable. (5) Morbid obesity: Code(s): E66.01 - Morbid (severe) obesity due to excess calories Plan: He is well aware of the relationship between weight and atrial fibrillation/card iac issues. However, unclear how much weight loss he can achieve. (6) AGATA (obstructive sleep apnea): Comment: Severe degree of sleep apnea. The total AHI was 45/hr and oxygen [place] was 65%. Code(s): G47.33 - Obstructive sleep apnea (adult) (pediatric) Plan: Continue CPAP. Orders: Orders ECG 3 day holter monitor 6 Months I48.19 - Other persistent atrial fibrillation CA echo transthoracic complete 6 Months I48.19 - Other persistent atrial fibrillation Coding Level of Care Code Est Pt Level 4 (03607) Diagnoses Persistent atrial fibrillation I48.19 Cardiomyopathy I42.9 PVC (premature ventricular contraction) I49.3 Essential hypertension I10 Morbid obesity E66.01 AGATA (obstructive sleep apnea) G47.33
== END 2023-10-04 15:00 | disposition home or self-care (01) ==
PROVIDERS: PCP Internal Medicine; Visit Provider Internal Medicine
DX: I48.19 Other persistent atrial fibrillation (principal); I42.9 Cardiomyopathy, unspecified; I49.3 Ventricular premature depolarization; I10 Essential (primary) hypertension; E66.01 Morbid (severe) obesity due to excess calories; G47.33 Obstructive sleep apnea (adult) (pediatric)
CPT/HCPCS: 99214

== ENCOUNTER → 2023-10-04 14:45 | Outpatient (BNVA) | payer OTHER, SELFPAY | PROVIDERS: PCP Internal Medicine; Visit Provider Internal Medicine ==

== ENCOUNTER 2024-03-03 01:12 | Emergency (ER) | payer OTHER, SELFPAY ==
[2024-03-03 01:15] VITALS: BP 174/122; PULSE 97; RESP 20; TEMP 36.4; O2SAT 91; BMI 41.9
--- NOTE | 2024-03-03 02:59 | ED.EXTPRO ---
HPI - Extremity Problem General Chief complaint: Extremity Problem Stated complaint: sciatica Time Seen by Provider: 03/03/24 02:59 Source: patient Mode of arrival: ambulatory Limitations: no limitations History of Present Illness ED Provider: jacinda FRAZIER Narrative: Patient with remote history of sciatica no recent injury noticed pain in left hip radiating to the left leg when he woke up from sleep yesterday denies any back pain no bladder or bowel incontinence no paresthesia no motor weakness Related Data Home Medications ?Medication ?Instructions ?Recorded ?Confirmed lisinopril 40 mg tablet 40 mg PO DAILY 04/12/22 10/04/23 amlodipine 5 mg tablet 5 mg PO DAILY 10/12/22 10/04/23 hydrochlorothiazide 50 mg tablet 50 mg PO QAM 02/07/23 10/04/23 Previous Rx's ?Medication ?Instructions ?Recorded metoprolol succinate 100 mg 100 mg PO BID #180 tabs 07/23/23 tablet,extended release 24 hr apixaban 5 mg tablet (Eliquis) 5 mg PO BID #60 tabs 08/06/23 cyclobenzaprine 10 mg tablet 10 mg PO Q8H #20 tabs 03/03/24 morphine 15 mg immediate release 15 mg PO Q8H PRN pain #15 tabs 03/03/24 tablet Allergies Allergy/AdvReac Type Severity Reaction Status Date / Time Penicillins [PENICILLINS] Allergy Intermediate diarrhea/GI Verified 03/03/24 01:16 upset Review of Systems Review of Systems: Yes all other systems are reviewed and are negative PMFSH Past Medical History Medical History PVC (premature ventricular contraction) Atrial fibrillation Essential hypertension Morbid obesity Surgical History Hx of rotator cuff surgery H/O colonoscopy Hx of appendectomy History of wisdom tooth extraction History of hernia repair History of colon resection History of tonsillectomy History of arthroscopy of right knee History of arthroscopy of left knee Family History Family History Father Aortic stenosis S/P aortic valve repair Coronary artery disease Obesity Diabetes Mother Multiple sclerosis Social History Social History Alcohol intake: current Alcohol intake frequency: holidays/special occasions only Alcohol type: hard liquor Patient Tobacco Use Status: Never used Tobacco Smoked in Last 30 Days: No Use of substances other than those prescribed or required for medical reasons: No Advance Directives: No Advance Directives Information Provided: Yes Physical Exam Vital Signs: Vital Signs: Last Vital Signs Temp 97.6 F 03/03/24 01:15 Pulse 97 03/03/24 01:15 Resp 20 03/03/24 01:15 BP 174/122 H 03/03/24 01:15 Pulse Ox 91 L 03/03/24 01:15 O2 Del Method Room Air 03/03/24 01:15 BMI result Body Mass Index 41.9 Appearance: Alert. Oriented X3. No acute distress. Eyes: No pallor or icterus ENT: Pharynx normal. Oral Mucosa moist Neck: Normal inspection. Neck supple. CVS: Normal heart rate and rhythm. Pulses normal. Respiratory: No respiratory distress. Equal air entry bilateral, no wheezing/rales/rhonchi Abdomen: Soft and nontender. Bowel sounds are present, no mass palpable, no CVA tenderness Skin: Skin warm and dry. Normal skin color. Normal skin turgor. Extremities: No lower extremity edema. No calf tenderness SLR positive left leg at 60 degrees, deep tenderness left sciatic notch Pace sign positive on the left side Neuro: Oriented X 3. No motor deficit. No sensory deficit.No cerebellar signs , cranial nerves II-XII intact Medications Administered Discontinued Medications Generic Name Dose Route Start Last Admin Trade Name Freq PRN Reason Stop Dose Admin Cyclobenzaprine HCl 10 mg 03/03/24 02:59 03/03/24 03:28 Cyclobenzaprine Hcl 10 Mg Tablet PO 03/03/24 03:00 10 mg ONCE ONE Administration Morphine Sulfate 15 mg 03/03/24 02:59 03/03/24 03:28 Morphine Sulfate Immed Release 15 Mg Tablet PO 03/03/24 03:00 15 mg ONCE ONE Administration Medical Decision Making Differential Diagnosis Differential Diagnoses: The differential diagnosis associated with the presentation includes Sciatica/piriformis syndrome Discharge Plan Discharge Clinical Impression: Piriformis syndrome of left side Patient Disposition: Home, Self-Care Instructions: Piriformis Syndrome (ED) Additional Instructions: Pain medication and muscle relaxer as prescribed Piriformis muscle stretch exercises as advised Follow with your PCP if not better Prescriptions: New cyclobenzaprine 10 mg tablet 10 mg PO Q8H Qty: 20 0RF morphine 15 mg tablet 15 mg PO Q8H PRN (Reason: pain) Qty: 15 0RF Rx Instructions: Partial Fill upon patient request. No Action metoprolol succinate 100 mg tablet extended release 24 hr 100 mg PO BID Qty: 180 3RF Eliquis 5 mg tablet 5 mg PO BID Qty: 60 7RF amlodipine 5 mg tablet 5 mg PO DAILY lisinopril 40 mg tablet 40 mg PO DAILY hydrochlorothiazide 50 mg tablet 50 mg PO QAM Print Language: Bolivian
[2024-03-03] MEDS: Morphine Sulfate Immed Release 15 MG TABLET PO (03:28)
[2024-03-03] MEDS: Cyclobenzaprine HCl 10 MG TABLET PO (03:28)
[2024-03-03 04:14] VITALS: BP 162/106; PULSE 87; RESP 16; TEMP 36.4; O2SAT 94
[2024-03-03 04:52] VITALS: BP 162/106; PULSE 87; RESP 16; TEMP 36.4; O2SAT 94
== END 2024-03-03 04:53 | disposition home or self-care (01) ==
PROVIDERS: Emergency Provider Internal Medicine; PCP Internal Medicine
DX: G57.02 Lesion of sciatic nerve, left lower limb (principal); M25.552 Pain in left hip; I10 Essential (primary) hypertension; I48.19 Other persistent atrial fibrillation; Z79.01 Long term (current) use of anticoagulants; Z79.899 Other long term (current) drug therapy
CPT/HCPCS: 99283; 99284

== ENCOUNTER → 2024-07-07 13:00 | Outpatient (REF) | payer OTHER, SELFPAY ==
--- NOTE | 2024-07-07 13:11 | CA_ITS ---
Transthoracic Echocardiogram Patient (Last, First, Middle): Bryan Mcmullen D Gender: Male Date of : 1965 Age: 59 Procedure Date: 07/07/2024 Procedure Type: Transthoracic Echocardiogram Location: OP Height: 172.72 cm Weight: 122.47 kg BSA: 2.32 m2 Heart Rate: bpm BP: 128 / 70 mmHg Green Chain Worker: Referring MD: Kameron Dominguez MD Symptoms: I48.19 - Other persistent atrial fibrillation Study Quality: Fair ECG Rhythm: Atrial Fibrillation Conclusions: - The left ventricular systolic function is mildly decreased. The visually estimated ejection fraction is between 45-50%. - The left atrium is severely dilated. - No obvious valvular pathology seen on this study. Findings Left Ventricle Normal left ventricular cavity size. There is moderately increased left ventricular wall thickness. The left ventricular systolic function is mildly decreased. The visually estimated ejection fraction is between 45-50%. There is mild global hypokinesis. Diastolic function is indeterminate on the basis of available data. Right Ventricle Normal right ventricular cavity size. There is normal right ventricular systolic function. Atria The left atrium is severely dilated. The right atrium is normal in size. Aortic Valve There is mild calcification of the aortic valve. There is no aortic valve stenosis. There is no aortic valve regurgitation. Mitral Valve The mitral valve appears normal. There is no mitral valve regurgitation. There is no mitral valve stenosis. Pulmonic Valve The pulmonic valve is likely normal. Tricuspid Valve Normal tricuspid valve structure. There is trace tricuspid valve regurgitation. There is no evidence of pulmonary hypertension. Great Vessels The asc aorta is normal in size. Venous The inferior vena cava was not well visualized. The inferior vena cava is normal in size. Pericardium/Pleural There is no evidence of pericardial effusion. Prior Study Comparison Changes noted compared to prior study dated: 01/29/2023. LVEF is lower than previously reported. Recommendations, Care & Conclusions No obvious valvular pathology seen on this study. Measurements 2D Linear Measurements IVSd: 1.38 0.6-0.9/0.6-1.0 cm LVIDd: 4.70 3.9-5.3/4.2-5.9 cm LVIDd Index: 2.03 2.4-3.2/2.2-3.1 cm/m2 LVIDs: 3.10 2.0-3.6 cm LVPWd: 1.32 0.7-1.1 cm Ao Root: 3.40 2.1-3.5 cm LA Diam: 4.90 2.7-3.8/3.0-4.0 cm LAIDs Index: 2.11 1.5-2.3 cm/m2 LV Mass: 313.46 67-162/88-224 g LV Mass Index: 135.11 43-95/49-115 g/m2 LVOT Diam: 2.20 3.0+(-)1.3 cm 2D Systolic Function EF 4C: 46.20 >55% EF 2C: 39.40 >55% EF BiP: 42.80 >55% Mitral Valve MV Pk E: 0.80 MV Decel Time: 173.00 E'Lateral: 13.70 E'Medial: 8.27 E/E' Med: 9.60 E/E' Lat: 5.80 PHT: 51.00 MVA PHT: 4.31 Decel Haines: 4.61 Aortic Valve AoV Pk Alberto: 1.57 AoV Mn Alberto: 1.04 AoV VTI: 0.32 AoV Pk Grad: 10.00 Aov Mn Grad: 5.00 MARA Cont.VTI: 1.83 LVOT LVOT Pk Alberto: 0.74 LVOT Mn Alberto: 0.48 LVOT VTI: 0.15 LVOT Pk Grad: 2.00 LVOT Mn Grad: 1.00 LVOT Diam: 2.20 LVOT Area: 3.80 Diastolic Function MV Pk E: 0.80 E'Medial: 8.27 E/E' Med: 9.60 E' Laterial: 13.70 E/E' Lat: 5.80 Right Ventricle TAPSE (mm): 28.00 TVS' Alberto: 10.00 Tricuspid Valve TR Pk Alberto: 2.32 TR Pk Grad: 22.00 Great Vessels Aorta Ao Root-2D: 3.40 2.0-3.7 cm Ao Asc: 3.70 2.1-3.4 cm Pulmonary Valve PV Pk Alberto: 0.81 Peak PV Grad: 3.00 Updated in Other Vendor System with Status of Final Kameron Dominguez MD electronically signed on 07/08/2024 12:27:28 PM with status of Final
--- OUTSIDE RECORDS SUMMARY | 2024-07-07 15:04 | XMS_ITS ---
Author Organization Lalito Jones DO, FACP Address [address] [place] [id number] Care Team Providers Care Network Associate Name Role Phone Lalito Jones Primary Care Provider REASON FOR VISIT RE:Cancel Appointment Request Encounters Encounter Location Date Provider Diagnosis Lalito Jones DO, FACP [address] [facility] [place], [place] [id number] 04/08/2024 Lalito Jones PLAN OF TREATMENT No Information
--- OUTSIDE RECORDS SUMMARY | 2024-07-07 15:04 | XMS_ITS ---
Author Organization Lalito Jones DO, FACP Address [address] [facility] [place] [id number] Care Team Providers Care Firer Kiln Name Role Phone Lalito Jones Primary Care Provider REASON FOR VISIT 6 month f/u Encounters Encounter Location Date Provider Diagnosis Lalito Jones DO, FACP [address] [facility] [place], [place] [phone] 04/16/2024 Lalito Jones PLAN OF TREATMENT No Information
--- OUTSIDE RECORDS SUMMARY | 2024-07-07 15:05 | XMS_ITS ---
Author Organization Lalito Jones DO, FACDianna Address [address] [place], [place] [phone] Care Team Providers Care Wedding Consultant Name Role Phone Lalito Jones Primary Care Provider [phone] REASON FOR VISIT Cancel Appointment Request Encounters Encounter Location Date Provider Diagnosis Lalito Jones DO, FACP [address] [place] [id number] 04/08/2024 Lalito Jones PLAN OF TREATMENT No Information
--- OUTSIDE RECORDS SUMMARY | 2024-07-07 15:05 | XMS_ITS | Patient Health Record ---
Author Organization Lalito Jones DO, FACP Address [address] [facility] [place] [phone] Care Team Providers Care Desizing Pad Operator Name Role Phone Lalito Jones Primary Care Provider ALLERGIES Allergen (clinical drug ingredient) Drug/Non Drug Allergy documented on EMR Reaction Allergy Type Onset Date Status Penicillin diarrhea, abdominal cramps Drug Allergy Active REASON FOR REFERRAL No Information MEDICATIONS Medication SIG (Take, Route, Frequency, Duration) Notes Start Date End Date Status amLODIPine Besylate 5 MG 1 tablet Orally Once a day for 90 days Active Vitamin D 2000 UNIT 1 capsule Orally Onc e a day 10/03/2017 Active Apixaban 5 MG 1 tablet Orally Twic e a day Active Lisinopril 40 MG 1 tablet Orally Once a day for 90 days Active Metoprolol Tartrate 100 MG 1 tablet Oral ly Twice a day Active hydroCHLOROthiazide 50 MG 1 tablet in th e morning Orally Once a day for 90 days Active IMMUNIZATIONS Vaccine Route Administration Date Status Comme nts TDaP Unknown 01/01/2012 Administered Hepatitis A (adult) Unknown 01/01/2012 Administered Hepatitis B (20 and more) Unknown 01/01/2012 Administer ed Hepatitis A (adult) Unknown 02/07/2012 Administered Hepatitis B (20 and more) Unknown 02/07/2012 Administer ed Influenza Quad IM Intramuscular 03/08/2018 Administered Influenza Quad IM Intramuscular 03/21/2019 Administered Influenza Quad IM Intramuscular 05/30/2021 Administered Influenza Quad Unknown 06/15/2020 Administered COVID-19 Princess (J/J) Unknown 11/20/2020 Administered COVID-19 Moderna Vaccine Unknown 07/11/2021 Administere d Influenza Quad Unknown 03/24/2022 Administered SOCIAL HISTORY Tobacco Use: Social History Observation Description Date Details (start date - stop date) Never Smoker NA - NA Sex Assigned At : Social History Observation Description Sex Assigned At Unknown Tobacco Use/Smoking Question Answer Notes Patient is a nonsmoker Additional Findings: Tobacco Non-User Cu rrent non-smoker, currently using no form of tobacco Alcohol Screen Question Answer Notes Did you have a drink contain ing alcohol in the past year? Yes How often did you have a dri nk containing alcohol in the past year? 2 to 3 times a week (3 points) How many drinks did you have on a typical day when you were drinking in the past year? 1 or 2 drinks (0 point) How often did you have 6 or more drinks on one occasion in the past year? Never (0 point) Points 3 Interpretation Negative PROBLEMS Problem Type ICD Code Onset Dates Problem Status W/U Status Risk SNOMED Code Notes Problem Vitamin D deficiency (E55.9) Active confirmed 54821149 Problem Morbid (severe) obesity due to excess calories (E66.01) Active confirmed 964684977 Problem Essential hypertension (I10) Active confirmed 39796456 Problem Atrial fibrillation, unspecified type (I48.91) Active confirmed Atrial fibrillation (82278648) Problem Diverticulitis (K57.92) Active confirmed 843925664 Problem Ventricular bigeminy (I49.9) Active confirmed 57524385 VITAL SIGNS Blood pressure diastolic 80 mm Hg 10/10/2023 Height 68.00 in 10/10/2023 Blood pressure systolic 110 mm Hg 10/10/2023 Weight 268 lbs 10/10/2023 BMI 40.74 kg/m2 10/10/2023 Encounters Encounter Location Date Provider Diagnosis Lalito Jones DO, [facility] [address] [place], [place] [phone] 10/10/2023 Lalito Jones Atrial fibrillation, unspecified type I48.91 ; Essential hypertension I10 ; Vitamin D deficiency E55.9 ; Morbid (severe) obesity due to excess calories E66.01 and Prostate cancer screening Z12.5 Lalito Jones DO, [facility] [address] [place], [place] [phone] 04/16/2024 Lalito Jones DO [address] [place], [place] [id number] 04/08/2024 Lalito Jones DO, [facility] [address] [place], [place] [phone] 04/08/2024 Lalito Jones DO, [address] [id number] 04/08/2024 Lalito Jones ASSESSMENTS Encounter Date Diagnosis Assessment Notes Treatment Notes Treatment Clinical Notes 10/10/2023 Essential hypertension (ICD-10 - I10) 10/10/2023 Atrial fibrillation, unspecified type (ICD-10 - I48.91) 10/10/2023 Vitamin D deficiency (ICD-10 - E55.9) 10/10/2023 Morbid (severe) obesity due to excess calories (ICD-10 - E66.01) Diet, portion control, exercise, weight loss. Advised to lose 15 pounds 10/10/2023 Prostate cancer screening (ICD-10 - Z12.5) PLAN OF TREATMENT Pending Test Test Name Order Date CBC w DIFF 10/10/2023 LIPOPROTEIN FRACTIONATION (LIPID PANEL) 10/10/2023 PROFILE, FASTING 10/10/2023 TSH (THYROID STIMULATING HORMONE) 2023 VITAMIN D 25-OH TOTAL 10/10/2023 PSA,Total (Free>4and<10) 10/10/2023 Insurance Providers Payer Name Payer Address Payer Phone Subscriber Number Group Number Insured Name Patient Relationship to Insured Coverage Start Date Coverage End Date [facility] [address] [place] [phone] [id number] Bryan Mcmullen Self - patient is the insured MEDICAL (GENERAL) HISTORY Medical History History ICD Code hypertension seasonal allergies pneumonia osteoarthritis gastroesophageal reflux disease (GERD) diverticulosis diverticulitis Acute appendicitis with loca lized peritonitis, without perforation, abscess, or gangrene K35.30 Ventricular bigeminy I49.9 Atrial fibrillation, unspecified type I4 8.91 Surgical History Surgery Date(Month/Year) herniorraphy, as an tonsillectomy wisdom teeth extraction arthroscopic knee surgery, left knee (tw ice), right knee (once) appendectomy 08/2018 sigmoid resection 12/2018 left shoulder arthroscopic surgery 06/20 19
== END ==
LOC: HO.CARD 13:00
PROVIDERS: PCP Internal Medicine; Visit Provider Internal Medicine
DX: I48.19 Other persistent atrial fibrillation (principal)
CPT/HCPCS: 93242; 93306

== ENCOUNTER → 2024-07-07 13:11 | Outpatient (BNV) | payer OTHER, SELFPAY | PROVIDERS: PCP Internal Medicine; Visit Provider Internal Medicine | DX: I51.7 Cardiomegaly (principal); I35.8 Other nonrheumatic aortic valve disorders; I48.91 Unspecified atrial fibrillation | CPT/HCPCS: 93306 ==

== ENCOUNTER 2024-07-23 15:50 | Outpatient (AMB) | payer OTHER, SELFPAY ==
[2024-07-23 16:03] VITALS: BP 122/78; PULSE 79; TEMP 36.2; O2SAT 96; BMI 43.8
--- NOTE | 2024-07-23 16:03 | A.OFFPC_ITS ---
Vital Signs 07/23/24 16:03 Height 5 ft 8 in Weight 288 lb BMI 43.8 BP 122/78 Blood Pressure Location Rt brachial Position Sitting Pulse 79 Temp 97.2 F Pulse Oximetry (%) 96 Intake Visit Reasons: 6 month follow up Intake Note: Patient is in for a 6 month follow up visit. He has no current health concerns Allergies Penicillins [PENICILLINS] Allergy (Intermediate, Verified 07/23/24 16:28) diarrhea/GI upset lactose Adverse Reaction (Uncoded 07/23/24 16:28) Abdominal Pain Medication List - Last Reconciled 07/23/24 by Larisa Grimes PA-C amlodipine 5 mg PO DAILY apixaban (Eliquis) 5 mg PO BID cholecalciferol (vitamin D3) 50 mcg PO DAILY hydrochlorothiazide 50 mg PO QAM lisinopril 40 mg PO DAILY metoprolol tartrate 100 mg PO BID PFSH Medical History PVC (premature ventricular contraction) Atrial fibrillation Essential hypertension Morbid obesity Surgical History Hx of rotator cuff surgery H/O colonoscopy Hx of appendectomy History of wisdom tooth extraction History of hernia repair History of colon resection History of tonsillectomy History of arthroscopy of right knee History of arthroscopy of left knee Family History Father Aortic stenosis S/P aortic valve repair Coronary artery disease Obesity Diabetes Mother Multiple sclerosis Social History Alcohol intake: current Alcohol intake frequency: holidays/special occasions only Alcohol type: hard liquor Patient Tobacco Use Status: Never used Tobacco Physical exam (Primary Care) Vital Signs: Last Vital Signs Temp 97.2 F 07/23/24 16:03 Pulse 79 07/23/24 16:03 BP 122/78 07/23/24 16:03 Pulse Ox 96 07/23/24 16:03 Care Plan Goal for BP management: BP goal <13/80 at goal today at 122/78 BMI result Body Mass Index 43.8 BMI Assessment/Plan discussion: High BMI High, discussed plan: lifestyle, weight reduction, dietary and alcohol moderation Tobacco/Smoking Status: Tobacco use Status Patient Tobacco Use Status Never used Tobacco 07/23/24 16:10 Coding Level of Care Code New Pt Level 4 (92872) Complex EM visit Add On G2211 Diagnoses Atrial fibrillation with rapid ventricular response I48.91 Morbid obesity E66.01 PVC (premature ventricular contraction) I49.3 Essential hypertension I10 AGATA (obstructive sleep apnea) G47.33 Cardiomyopathy I42.9 Persistent atrial fibrillation I48.19 Assessment & Plan Assessment & Plan (1) Atrial fibrillation with rapid ventricular response: Code(s): I48.91 - Unspecified atrial fibrillation Category: Medical Plan: Patient to continue amlodipine, metoprolol, lisinopril, hydrochlorothiazide and Eliquis. Patient being followed by pyrotechnic mixer. Condition is chronic and stable will continue to monitor. (2) Morbid obesity: Code(s): E66.01 - Morbid (severe) obesity due to excess calories Category: Medical Plan: Discussed with patient about diet and exercise. Condition is chronic and stable continue to monitor. (3) PVC (premature ventricular contraction): Code(s): I49.3 - Ventricular premature depolarization Category: Medical Plan: Patient to continue amlodipine, metoprolol, lisinopril, hydrochlorothiazide and Eliquis. Patient being followed by pyrotechnic mixer. Condition is chronic and stable will continue to monitor. (4) Essential hypertension: Code(s): I10 - Essential (primary) hypertension Category: Medical Plan: Patient to continue amlodipine, metoprolol, lisinopril, hydrochlorothiazide and Eliquis. Patient being followed by pyrotechnic mixer. Condition is chronic and stable will continue to monitor. (5) AGATA (obstructive sleep apnea): Comment: Severe degree of sleep apnea. The total AHI was 45/hr and oxygen [place] was 65%. Code(s): G47.33 - Obstructive sleep apnea (adult) (pediatric) Category: Medical Plan: Condition is chronic and stable will continue to monitor. (6) Cardiomyopathy: Code(s): I42.9 - Cardiomyopathy, unspecified Category: Medical Plan: Patient to continue amlodipine, metoprolol, lisinopril, hydrochlorothiazide and Eliquis. Patient being followed by pyrotechnic mixer. Condition is chronic and stable will continue to monitor. (7) Persistent atrial fibrillation: Code(s): I48.19 - Other persistent atrial fibrillation Category: Medical Plan: Patient to continue amlodipine, metoprolol, lisinopril, hydrochlorothiazide and Eliquis. Patient being followed by pyrotechnic mixer. Condition is chronic and stable will continue to monitor. Plan Plan - Order CBC to assess hemoglobin and white blood cells for anemia and inflammatory markers. - Conduct CMP for evaluation of metabolic functions including kidney function and electrolytes. - Perform BMP to rule out heart failure indicators. - Lipid panel to assess cholesterol levels. - Liver function tests for all patients as a precautionary measure. - PSA to monitor for potential prostate issues. - Thyroid function tests. - Monitor vitamin B and D levels. - Screen for Lyme disease due to outdoor exposure. - Assess testosterone level in relation to reported low libido. - Recommend further discussion with a urologist if testosterone therapy is considered. - The patient to undergo colonoscopy screening this year. - No immediate changes to current medications; continue management for atrial fibrillation and hypertension. Orders: Orders Comprehensive Pollard. Panel Fast Today E66.01 - Morbid (severe) obesity due to excess calories, G47.33 - Obstructive sleep apnea (adult) (pediatric), I10 - Essential (primary) hypertension, I42.9 - Cardiomyopathy, unspecified, I48.19 - Other persistent atrial fibrillation, I48.91 - Unspecified atrial fibrillation, I49.3 - Ventricular premature depolarization Complete Blood Count Auto Diff Today E66.01 - Morbid (severe) obesity due to excess calories, G47.33 - Obstructive sleep apnea (adult) (pediatric), I10 - Essential (primary) hypertension, I42.9 - Cardiomyopathy, unspecified, I48.19 - Other persistent atrial fibrillation, I48.91 - Unspecified atrial fibrillation, I49.3 - Ventricular premature depolarization Lipid Panel Today E66.01 - Morbid (severe) obesity due to excess calories, G47.33 - Obstructive sleep apnea (adult) (pediatric), I10 - Essential (primary) hypertension, I42.9 - Cardiomyopathy, unspecified, I48.19 - Other persistent atrial fibrillation, I48.91 - Unspecified atrial fibrillation, I49.3 - Ventricular premature depolarization Liver Panel Today E66.01 - Morbid (severe) obesity due to excess calories, G47.33 - Obstructive sleep apnea (adult) (pediatric), I10 - Essential (primary) hypertension, I42.9 - Cardiomyopathy, unspecified, I48.19 - Other persistent atrial fibrillation, I48.91 - Unspecified atrial fibrillation, I49.3 - Ventricular premature depolarization Lyme IgG/IgM w/reflex to WB Today E66.01 - Morbid (severe) obesity due to excess calories, G47.33 - Obstructive sleep apnea (adult) (pediatric), I10 - Essential (primary) hypertension, I42.9 - Cardiomyopathy, unspecified, I48.19 - Other persistent atrial fibrillation, I48.91 - Unspecified atrial fibrillation, I49.3 - Ventricular premature depolarization TSH reflex Free T4 Today E66.01 - Morbid (severe) obesity due to excess calories, G47.33 - Obstructive sleep apnea (adult) (pediatric), I10 - Essential (primary) hypertension, I42.9 - Cardiomyopathy, unspecified, I48.19 - Other persistent atrial fibrillation, I48.91 - Unspecified atrial fibrillation, I49.3 - Ventricular premature depolarization Vitamin B12 and Folate Today E66.01 - Morbid (severe) obesity due to excess calories, G47.33 - Obstructive sleep apnea (adult) (pediatric), I10 - Essential (primary) hypertension, I42.9 - Cardiomyopathy, unspecified, I48.19 - Other persistent atrial fibrillation, I48.91 - Unspecified atrial fibrillation, I49.3 - Ventricular premature depolarization Testosterone, Total Today E66.01 - Morbid (severe) obesity due to excess calories, G47.33 - Obstructive sleep apnea (adult) (pediatric), I10 - Essential (primary) hypertension, I42.9 - Cardiomyopathy, unspecified, I48.19 - Other persistent atrial fibrillation, I48.91 - Unspecified atrial fibrillation, I49.3 - Ventricular premature depolarization Hemoglobin A1c Today E66.01 - Morbid (severe) obesity due to excess calories, G47.33 - Obstructive sleep apnea (adult) (pediatric), I10 - Essential (primary) hypertension, I42.9 - Cardiomyopathy, unspecified, I48.19 - Other persistent atrial fibrillation, I48.91 - Unspecified atrial fibrillation, I49.3 - Ventricular premature depolarization B Type Natriuretic Peptide Today R60.0 - Localized edema Magnesium Today E66.01 - Morbid (severe) obesity due to excess calories, G47.33 - Obstructive sleep apnea (adult) (pediatric), I10 - Essential (primary) hypertension, I42.9 - Cardiomyopathy, unspecified, I48.19 - Other persistent atrial fibrillation, I48.91 - Unspecified atrial fibrillation, I49.3 - Ventricular premature depolarization PSA,Total (Free>4and<10) Today E66.01 - Morbid (severe) obesity due to excess calories, G47.33 - Obstructive sleep apnea (adult) (pediatric), I10 - Essential (primary) hypertension, I42.9 - Cardiomyopathy, unspecified, I48.19 - Other persistent atrial fibrillation, I48.91 - Unspecified atrial fibrillation, I49.3 - Ventricular premature depolarization Vitamin D 25-OH Total Today E66.01 - Morbid (severe) obesity due to excess calories, G47.33 - Obstructive sleep apnea (adult) (pediatric), I10 - Essential (primary) hypertension, I42.9 - Cardiomyopathy, unspecified, I48.19 - Other persistent atrial fibrillation, I48.91 - Unspecified atrial fibrillation, I49.3 - Ventricular premature depolarization Patient Instructions: Patient Instructions - Schedule and complete blood tests as instructed, fasting overnight prior to sample collection. - Maintain current medication regimen. - Schedule a follow-up appointment in six months, but await potential adjustments based on lab results. - Arrange for colonoscopy if not yet scheduled. - Engage in health monitoring, report any new symptoms, or if current conditions worsen. - Consider urology consult if testosterone levels indicate treatment is needed. Scribe Plan - Not visible on output: History of Present Illness The patient is a 59-year-old male presenting with a primary focus on a six-month follow-up visit. He has a history of atrial fibrillation managed with current medications: amlodipine, metoprolol, lisinopril, hydrochlorothiazide, and Eliquis. The patient's last echocardiogram from July 07, 2024, revealed a left ventricular ejection fraction of 45 to 50% and a severely dilated left atrium, though adequate cardiac output was noted. There have been no significant changes since his last cardiology appointment, and he is scheduled to see his pyrotechnic mixer in August. He also underwent Holter monitoring, demonstrating a baseline heart rate between 73 and 149 bpm, with occasional premature ventricular contractions. He reports a history of diverticulitis addressed by colon reconstruction. His earlier colonoscopies identified polyps at age 49, warranting a five-year surveillance interval. Subsequent screening has not found further polyps. Social History - The patient frequently spends time outdoors, particularly in wooded areas, which is relevant for Lyme disease considerations. - No tobacco or alcohol use was reported. - There is no mention of current occupation or employment status in the conversation. Review of Systems - Cardiovascular: Reports taking all medications as prescribed. - Respiratory: Denies shortness of breath. - Gastrointestinal: Denies bloody stools or bowel issues post-surgery. - Genitourinary: Reports normal urination. - General: Denies chest pain. Physical Exam Appearance: Alert. Oriented X3. No acute distress. Head: Normal external exam. Normocephalic. Atraumatic. Eyes: Pupils are equal, round, and reactive to light. Extraocular movements intact. Conjunctiva and sclera normal. Eyelids normal. Ears: External auditory canal normal. Tympanic membranes normal. No wax noted. Throat: Pharynx normal. Uvula midline. Moist mucous membranes. Neck: Normal inspection. Neck supple. Full range of motion. No adenopathy. Thyr oid Normal. No meningeal signs. No neck mass noted. Cardiovascular: Normal heart rate and rhythm. Heart sound normal. No murmurs noted. Pulses normal throughout. No murmurs are going up into the carotids. Respiratory: No respiratory distress. Painless inspiration. Breath sounds normal. No wheezes/rales/rhonchi noted. Chest nontender. No accessory muscle usage noted or decreased air movement noted. Abdomen: Soft and nontender. Bowel sounds normal in all 4 quadrants. No distention noted. No organomegaly noted. No visible injury noted. Back: No costovertebral angle tenderness. Full range of motion noted. No pain on kidney percussion. Skin: Skin warm and dry. Normal skin color. Normal skin turgor. No rashes/lesions/lacerations noted. Extremities: No lower extremity edema. Extremities exhibit normal range of motion. Extremities nontender. Legs noted to be a little loose-folded. Neuro: Oriented X 3. No motor deficit. No sensory deficit. Reflexes normal. Results - ECHO (July 07, 2024): Ejection fraction 45-50%, severely dilated left atrium. - Holter Monitor: Heart rate 73 to 149 bpm with occasional PVCs; otherwise normal. Plan - Order CBC to assess hemoglobin and white blood cells for anemia and inflammatory markers. - Conduct CMP for evaluation of metabolic functions including kidney function and electrolytes. - Perform BMP to rule out heart failure indicators. - Lipid panel to assess cholesterol levels. - Liver function tests for all patients as a precautionary measure. - PSA to monitor for potential prostate issues. - Thyroid function tests. - Monitor vitamin B and D levels. - Screen for Lyme disease due to outdoor exposure. - Assess testosterone level in relation to reported low libido. - Recommend further discussion with a urologist if testosterone therapy is considered. - The patient to undergo colonoscopy screening this year. - No immediate changes to current medications; continue management for atrial fibrillation and hypertension. Patient was informed and verbally consented to the use of an ambient scribe for clinic note documentation during this visit. Discussion Notes I informed the patient about his echocardiogram findings and the dilated left atrium with adequate cardiac output reported. We discussed the scheduled August cardiology follow-up. I advised performing a comprehensive series of blood tests including CBC, CMP, BMP, lipid panel, liver, thyroid, vitamin, diabetes, PSA, and testosterone evaluations. We talked about possible referral to a urologist given the concerns about low libido if his testosterone levels indicate treatment. We discussed Lyme screening due to his outdoor activities. I recommended colonoscopy as part of his routine surveillance. The patient agreed to continue with scheduled medications and follow-up for necessary lab evaluations. We planned for a six-month follow-up unless lab results necessitate an earlier visit. Patient Instructions - Schedule and complete blood tests as instructed, fasting overnight prior to sample collection. - Maintain current medication regimen. - Schedule a follow-up appointment in six months, but await potential adjustments based on lab results. - Arrange for colonoscopy if not yet scheduled. - Engage in health monitoring, report any new symptoms, or if current conditions worsen. - Consider urology consult if testosterone levels indicate treatment is needed.
== END 2024-07-23 16:27 | disposition home or self-care (01) ==
LOC: HO.HMCSH 15:50
PROVIDERS: PCP Internal Medicine; Visit Provider Physician Assistant Medical
DX: I48.91 Unspecified atrial fibrillation (principal); E66.01 Morbid (severe) obesity due to excess calories; I49.3 Ventricular premature depolarization; I10 Essential (primary) hypertension; G47.33 Obstructive sleep apnea (adult) (pediatric); I42.9 Cardiomyopathy, unspecified; I48.19 Other persistent atrial fibrillation

== ENCOUNTER 2024-08-01 14:22 | Outpatient (REF) | payer OTHER, SELFPAY ==
[2024-08-01 15:58] LABS: MANUAL DIFF FLAG NO
[2024-08-01 16:10] LABS: Basophils Percent Auto 0.4 % (0-2); Eosinophils Percent Auto 0.6 % (0-4); Hematocrit 42.2 % (42.0-52.0); Hemoglobin 15.1 g/dl (14.0-18.0); Imm Gran Abs Auto 0.04 X10*3/uL (0.00-0.03); Imm Gran Pct Auto 0.6 % (0.0-0.4); Lymphocytes Percent Auto 27.6 % (20-40); Mean Corpuscular HGB Conc 35.8 g/dl (31.0-36.0); Mean Corpuscular Hemoglobin 30.4 pg (27.0-33.0); Mean Corpuscular Volume 85.1 fL (80.0-98.0); Mean Platelet Volume 9.2 fL (9.4-12.4); Monocytes Absolute Auto 0.6 X10*3/uL (0.1-1.2); Monocytes Percent Auto 8.7 % (2-11); Neutrophils Absolute Auto 4.5 x10*3/uL (2.0-8.3); Neutrophils Percent Auto 62.1 % (45-73); Platelet Count 202 X10*3/uL (160-400); Red Blood Count 4.96 X10*6/uL (4.60-5.80); Red Cell Distribution Width 11.9 % (11.0-16.0); White Blood Count 7.2 X10*3/uL (4.8-10.8)
[2024-08-01 16:20] LABS: Estimated Average Glucose 117 mg/dL; Hemoglobin A1C 157.2183 umol/L; Hemoglobin A1c % 5.7 % (<6.0); Total Hemoglobin (HGBA1C) 4005.3281 umol/L
[2024-08-01 16:33] LABS: B Type Natriuretic Peptide 138 pg/mL (<100)
[2024-08-01 17:19] LABS: PSA,Total (Free>4and<10) 0.61 ng/mL (0.00-4.00)
[2024-08-01 18:02] LABS: Alanine Aminotransferase 42 U/L (0-40); Albumin Level 4.3 g/dL (3.5-5.0); Anion Gap 13 (12-20); Aspartate Amino Transferase 39 U/L (5-37); Bilirubin Direct 0.2 mg/dL (0.0-0.5); Bilirubin Total 0.8 mg/dL (0.0-1.0); Blood Urea Nitrogen 12 mg/dL (9-16); Calcium 9.4 mg/dL (8.4-10.2); Carbon Dioxide 26 mmol/L (22-29); Chloride 104 mmol/L (96-108); Cholesterol 171 mg/dL (<200); Estimated Glomerular Filt Rate > 60; Glucose Fasting 99 mg/dL (60-99); HDL Cholesterol 40 mg/dL (>40); LDL Cholesterol Calculated 111 mg/dL (<100); Potassium 3.3 mmol/L (3.3-5.1); Sodium 140 mmol/L (135-145); Total Protein 7.5 g/dL (6.5-8.0); Triglycerides 104 mg/dL (<150)
[2024-08-01 18:15] LABS: Alkaline Phosphatase 63 U/L (39-117)
[2024-08-01 18:20] LABS: Vitamin D 25-OH Total 80.8 ng/mL (>30)
[2024-08-01 19:12] LABS: Vitamin B12 488 pg/mL (200-900)
[2024-08-01 21:30] LABS: Folate 9.3 ng/mL (> or = 4.0)
[2024-08-04 22:47] LABS: Lyme Abs Screen <0.90 index
[2024-08-06 12:28] LABS: Testosterone, Total 278 ng/dL (250-1100)
== END 2024-08-01 14:23 | disposition home or self-care (01) ==
LOC: HO.HMGCLDS 14:22
PROVIDERS: PCP Internal Medicine; Visit Provider Physician Assistant Medical
DX: R60.0 Localized edema (principal); I48.19 Other persistent atrial fibrillation; I42.9 Cardiomyopathy, unspecified; G47.33 Obstructive sleep apnea (adult) (pediatric); I48.91 Unspecified atrial fibrillation; I49.3 Ventricular premature depolarization; E66.01 Morbid (severe) obesity due to excess calories; I10 Essential (primary) hypertension; Z12.5 Encounter for screening for malignant neoplasm of prostate
CPT/HCPCS: 36415; 80053; 80061; 80076; 82248; 82306; 82607; 82746; 83036; 83735; 83880; 84153; 84403; 84443; 85025; 86617; 86618

== ENCOUNTER 2024-09-03 14:38 | Outpatient (AMB) | payer OTHER, SELFPAY ==
[2024-09-03 14:42] VITALS: BP 118/62; PULSE 71; BMI 43.5
--- NOTE | 2024-09-03 14:42 | A.OFFVIS_ITS ---
Vital Signs 09/03/24 14:42 Height 5 ft 8 in Weight 286 lb BMI 43.5 BP 118/62 Blood Pressure Location Lt brachial Position Sitting Pulse 71 Pulse Source Monitor Intake Visit Reasons: follow up after testings Allergies Penicillins [PENICILLINS] Allergy (Intermediate, Verified 07/23/24 16:28) diarrhea/GI upset lactose Adverse Reaction (Uncoded 07/23/24 16:28) Abdominal Pain Medication List - Last Reconciled 09/03/24 by Kameron Dominguez MD amlodipine 5 mg PO DAILY apixaban (Eliquis) 5 mg PO BID cholecalciferol (vitamin D3) 50 mcg PO DAILY hydrochlorothiazide 50 mg PO QAM lisinopril 40 mg PO DAILY metoprolol tartrate 100 mg PO BID HPI Comments Details: Bryan returns for follow-up regarding atrial fibrillation. In 2018, he was seen for PVCs and was on a small dose of beta-gunjan. In 2021, he had purchased a smart watch and that showed atrial fibrillation. Then Holter had shown atrial fibrillation with rapid rates. Subsequently, underwent cardioversion. However, did not last in sinus rhythm. Went back into atrial fibrillation very soon. Also diagnosed with obstructive sleep apnea and started CPAP. Since last seen, he states he is feeling good. No concerns whatsoever. No cardiac symptoms at all. [facility] Medical History PVC (premature ventricular contraction) Atrial fibrillation Essential hypertension Morbid obesity Surgical History Hx of rotator cuff surgery H/O colonoscopy Hx of appendectomy History of wisdom tooth extraction History of hernia repair History of colon resection History of tonsillectomy History of arthroscopy of right knee History of arthroscopy of left knee Family History Father Aortic stenosis S/P aortic valve repair Coronary artery disease Obesity Diabetes Mother Multiple sclerosis Social History Alcohol intake: current Alcohol intake frequency: holidays/special occasions only Alcohol type: hard liquor Patient Tobacco Use Status: Never used Tobacco Review of Systems Const Denies weakness ENT Denies dizziness Card Denies chest pain, Denies chest pain with activity, Denies syncope, Denies rapid heart rate, Denies pedal edema, Denies edema, Denies leg edema, Denies lightheadedness, Denies palpitations, Denies dyspnea, Denies dyspnea on exertion and Denies orthopnea Resp Denies cough, Denies dyspnea and Denies dyspnea on exertion GI Denies hematochezia and Denies change in stool character Musc Denies abnormal gait, Denies muscle cramps, Denies muscle weakness, Denies numbness, Denies radiating pain into limb and Denies tingling Neuro Denies abnormal gait, Denies dizziness, Denies syncope, Denies numbness, Denies tingling and Denies weakness Endo Denies palpitations Physical Exam Vital Signs: Last Vital Signs Pulse 71 09/03/24 14:42 BP 118/62 09/03/24 14:42 BMI result Body Mass Index 43.5 Const General: comfortable and no acute distress Orientation/consciousness: patient oriented x3 HEENT Other: Unremarkable Head: Yes normal to inspection Neck Neck: Yes normal visual inspection Chest Chest palpation & inspection: normal inspection of the chest Resp Auscultation: clear to auscultation bilaterally Cardio Palpation: normal PMI Heart sounds: S1 normal heart sound present, S2 normal heart sound present, no gallops, no murmurs and no rubs GI Palpation (GI): Soft to palpation Back/Spine/Pelvis Other: unremarkable Skin General skin exam: no rashes or lesions noted Neuro General: patient oriented x3 Extrem General: Yes normal to inspection Psych Mental Status: mental status grossly normal Office Procedures EKG Details: EKG with atrial fibrillation at 71/Min. [id number], Complete Assessment & Plan Assessment & Plan (1) Persistent atrial fibrillation: Code(s): I48.19 - Other persistent atrial fibrillation Category: Medical Plan: Attempted cardioversion, but failed. Likely all from some combination of weight, obstructive sleep apnea, enlarged atrium. His left atrium is also severely dilated which will make rhythm control difficult. Per patient preference as well as relatively low likelihood of maintaining sinus because of weight and AGATA, we decided to leave him in rate control. Clinically, he is completely asymptomatic at this time. In the recent Holter, underlying rhythm is atrial fibrillation at an average rate of 73/Min with good rate control. Continue beta-blockers and Eliquis. (2) Cardiomyopathy: Code(s): I42.9 - Cardiomyopathy, unspecified Category: Medical Plan: Variable LVEF for time. Initially, LVEF was 34%. Following that, the 45-50%. Then 56%. Most recent study with 45-50%. No symptoms or signs of congestive heart failure. Exercise stress echocardiogram from 2018 negative for ischemia at 8.5METS. (3) PVC (premature ventricular contraction): Code(s): I49.3 - Ventricular premature depolarization Category: Medical Plan: No specific management for this. Already on beta-blockers. Weight loss could help the PVC burden as well. (4) Essential hypertension: Code(s): I10 - Essential (primary) hypertension Category: Medical Plan: On lisinopril/hydrochlorothiazide/amlodipine. Stable. (5) Morbid obesity: Code(s): E66.01 - Morbid (severe) obesity due to excess calories Category: Medical Plan: He is well aware of the relationship between weight and atrial fibrillation/cardiac issues. However, unclear how much weight loss he can achieve. (6) AGATA (obstructive sleep apnea): Comment: Severe degree of sleep apnea. The total AHI was 45/hr and oxygen [place] was 65%. Code(s): G47.33 - Obstructive sleep apnea (adult) (pediatric) Category: Medical Plan: Continue CPAP. Coding Level of Care Code Est Pt Level 4 (24185) Complex EM visit Add On G2211 Diagnoses Persistent atrial fibrillation I48.19 Cardiomyopathy I42.9 PVC (premature ventricular contraction) I49.3 Essential hypertension I10 Morbid obesity E66.01 AGATA (obstructive sleep apnea) G47.33 CPT Codes EKG - CPT: 59900-[id number], Complete ([id number])
== END 2024-09-03 15:03 | disposition home or self-care (01) ==
PROVIDERS: PCP Internal Medicine; Visit Provider Internal Medicine
DX: I48.19 Other persistent atrial fibrillation (principal); I42.9 Cardiomyopathy, unspecified; I49.3 Ventricular premature depolarization; I10 Essential (primary) hypertension; E66.01 Morbid (severe) obesity due to excess calories; G47.33 Obstructive sleep apnea (adult) (pediatric)
CPT/HCPCS: 93010; 99214

== ENCOUNTER → 2024-09-03 14:38 | Outpatient (BNVA) | payer OTHER, SELFPAY | PROVIDERS: PCP Internal Medicine; Visit Provider Internal Medicine | DX: I48.19 Other persistent atrial fibrillation (principal); I42.9 Cardiomyopathy, unspecified; I49.3 Ventricular premature depolarization; I10 Essential (primary) hypertension; E66.01 Morbid (severe) obesity due to excess calories; Z68.41 Body mass index [BMI] 40.0-44.9, adult; G47.33 Obstructive sleep apnea (adult) (pediatric); Z79.01 Long term (current) use of anticoagulants; Z79.899 Other long term (current) drug therapy | CPT/HCPCS: 93005 ==

== ENCOUNTER 2024-09-30 14:42 | Outpatient (AMB) | payer OTHER, SELFPAY ==
--- NOTE | 2024-09-30 14:44 | MHC.OFFVIS ---
Vital Signs 09/30/24 14:45 Height 5 ft 8 in Weight 284 lb BMI 43.2 Intake Visit Reasons: 1 yr f/u appt Intake Note: Patient presents follow up AGATA. Compliance in chart Allergies Penicillins [PENICILLINS] Allergy (Intermediate, Verified 09/30/24 14:49) diarrhea/GI upset lactose Adverse Reaction (Uncoded 09/30/24 14:49) Abdominal Pain HPI Comments Details: History of Present Illness The patient is a 59-year-old male presenting with obstructive sleep apnea. He utilizes CPAP therapy with a compliance rate of 99%. Residual AHI is 3.8 events/hour. The patient did not use CPAP for one night in July due to travel. There is interest in Inspire therapy, contingent upon weight criteria, and weight management interventions for sleep apnea. Previous bilateral rotator cuff repair affects his exercise habits. CPAP compliance review: Does patient have sufficient PAP supplies? Yes Does patient clean PAP supplies on a regular basis? Yes Does the patient use distilled water in their PAP machine water reservoir? Yes PAP compliance report reviewed. Compliance report date range: June 25, 2024 to September 22, 2024 Overall usage: 99 percent Usage greater than 4 hours: 94 percent PAP setting: APAP 5-15 cm H2O with EPR set to 2 Average usage on days used: 6 hours Average mask leakage: 10.7 LPM Residual AHI: 3.8 per hour Social History - Exercise: The patient has reduced weight-lifting activities due to bilateral rotator cuff repair. [facility] Medical History PVC (premature ventricular contraction) Atrial fibrillation Essential hypertension Morbid obesity Surgical History Hx of rotator cuff surgery H/O colonoscopy Hx of appendectomy History of wisdom tooth extraction History of hernia repair History of colon resection History of tonsillectomy History of arthroscopy of right knee History of arthroscopy of left knee Family History Father Aortic stenosis S/P aortic valve repair Coronary artery disease Obesity Diabetes Mother Multiple sclerosis Social History Alcohol intake: current Alcohol intake frequency: holidays/special occasions only Alcohol type: hard liquor Patient Tobacco Use Status: Never used Tobacco Physical Exam Vital Signs: BMI result Body Mass Index 43.2 Const General: no acute distress Orientation/consciousness: patient oriented x3 Resp Effort & Inspection: normal respiratory effort and able to speak in complete sentences Neuro General: patient oriented x3 Psych Mental Status: mental status grossly normal Speech and movement: Clear speech present Attitude: cooperative Assessment & Plan Assessment & Plan (1) AGATA (obstructive sleep apnea): Comment: Severe degree of sleep apnea. The total AHI was 45/hr and oxygen [place] was 65%. Code(s): G47.33 - Obstructive sleep apnea (adult) (pediatric) Category: Medical Plan Discussion Notes During the consultation, I reviewed CPAP compliance with the patient, noting satisfactory adherence and residual AHI levels. We discussed the possibility of Inspire therapy and its BMI criterion, although current eligibility criteria are not clearly defined. An alternative weight management strategy discussed is the use of GLP-1 receptor agonists, though patient's concern regarding muscle mass loss associated with such drugs was noted and strategies to mitigate this risk were discussed. I advised the patient to follow up in one year or sooner if necessary. Plan Continued CPAP use due to compliance. Inspire therapy consideration; eligibility depends on weight. Discussed Zepbound for weight management, with consideration of patient's concern for possible muscle loss with GLP-1 receptor agonist use. Patient will discuss with his PCP. Follow-up in one year or sooner if needed. - Continue to use APAP 5-15 cm H2O with EPR set to 2nightly with a goal of greater than 4 hours nightly, as patient is experiencing good clinical effect from use. - Clean and change PAP supplies routinely, including filters, masks, tubing, and water reservoir. - Use distilled water in PAP water reservoir. Patient was informed and verbally consented to the use of an ambient scribe for clinic note documentation during this visit. Coding Level of Care Code Est Pt Level 3 (10419) Diagnoses AGATA (obstructive sleep apnea) G47.33
[2024-09-30 14:45] VITALS: BMI 43.2
== END 2024-09-30 15:41 | disposition home or self-care (01) ==
LOC: HO.HSMS 14:43
PROVIDERS: PCP Internal Medicine; Visit Provider Nurse Practitioner Family
DX: G47.33 Obstructive sleep apnea (adult) (pediatric) (principal)
CPT/HCPCS: 99213

== ENCOUNTER → 2024-09-30 14:42 | Outpatient (BNVA) | payer OTHER, SELFPAY | PROVIDERS: PCP Internal Medicine; Visit Provider Nurse Practitioner Family ==

== ENCOUNTER 2025-03-13 14:34 | Outpatient (AMB) | payer OTHER, SELFPAY ==
--- NOTE | 2025-03-13 14:32 | MHC.PC.OV ---
Vital Signs 03/13/25 14:38 03/13/25 15:16 Height 5 ft 8.7 in Weight 267 lb BMI 39.8 BP 153/87 H 140/93 H Blood Pressure Location Rt brachial Position Sitting Respiration 14 Pulse 82 Pulse Source Pulse Oximeter Temp 97.8 F Temp Source Temporal Artery Scan Pulse Oximetry (%) 97 Oxygen Delivery Method Room Air Intake Visit Reasons: follow up - see comments Vulcanizer Operator Required: No Accompanied by: Self / Same As Patient Allergies Penicillins (PENICILLINS) Allergy (Intermediate, Verified 03/13/25 14:52) diarrhea/GI upset lactose Adverse Reaction (Uncoded 03/13/25 14:52) Abdominal Pain Medication List - Last Reconciled 03/13/25 by Larisa Grimes PA-C apixaban (Eliquis) 5 mg PO BID cholecalciferol (vitamin D3) 50 mcg PO DAILY hydrochlorothiazide 50 mg PO QAM lisinopril 40 mg PO DAILY metoprolol tartrate 100 mg PO BID Tobacco use date assessed: 03/13/25 Dental Screening Dental Screen Date: 03/13/25 Did you have a dental visit in the last 12 months?: Yes Did you have a dental problem in the last 6 months where you did not have access to dental care?: No Was dental information given to patient?: Patient has dentist HPI follow up - see comments HPI Details The patient is a 59-year-old male presenting for a follow-up visit to manage chronic conditions and review recent lab results. The patient has a history of atrial fibrillation and premature ventricular contractions, for which he is under the care of a senior service aide and is on medications including amlodipine, metoprolol, lisinopril, hydrochlorothiazide, and Eliquis. His hypertension is managed with the aforementioned medications, and he monitors his blood pressure at home. The patient has obstructive sleep apnea, which is currently stable. Recent lab results from July 2024 indicated a normal complete blood count, normal kidney function, and normal levels of PSA, vitamin B12, vitamin D, and folate. However, liver enzymes were slightly elevated, and LDL cholesterol was mildly elevated at 111 mg/dL, with total cholesterol at 171 mg/dL. The patient's A1c was 5.7, indicating prediabetes, which has since increased to 6.0. The patient has a history of colon polyps, necessitating a colonoscopy every five years. Social History - Exercise: The patient monitors his blood pressure at home, indicating some level of health awareness and management. [facility] Medical History (Updated 03/13/25 @ 15:15 by Larisa Grimes PA-C) Colonic polyp Elevated liver enzymes Hyperlipidemia Pre-diabetes PVC (premature ventricular contraction) Atrial fibrillation Essential hypertension Morbid obesity Surgical History Hx of rotator cuff surgery H/O colonoscopy (~02/05/20) Hx of appendectomy History of wisdom tooth extraction History of hernia repair History of colon resection History of tonsillectomy History of arthroscopy of right knee History of arthroscopy of left knee Family History Father Aortic stenosis S/P aortic valve repair Coronary artery disease Obesity Diabetes Mother Multiple sclerosis Social History Housing: House Alcohol intake: current Alcohol intake frequency: a few times a month Alcohol type: hard liquor Patient Tobacco Use Status: Never used Tobacco service: No Current occupational status: employed Cognitive needs: No Hearing needs: No Vision needs: Yes (reading glasses) Questionnaire PHQ-9 Over the last 2 weeks, how often have you been bothered by any of the following problems? 1. Little interest or pleasure in doing things: not at all 2. Feeling down, depressed, or hopeless: not at all 3. Trouble falling or staying asleep, or sleeping too much: not at all 4. Feeling tired or having little energy: not at all 5. Poor appetite or overeating: not at all 6. Feeling bad about yourself - or that you are a failure or have let yourself or your family down: not at all 7. Trouble concentrating on things, such as reading the newspaper or watching television: not at all 8. Moving or speaking so slowly that other people could have noticed. Or the opposite - being so fidgety or restless that you have been moving around a lot more than usual: not at all 9. Thoughts that you would be better off or of hurting yourself in some way: not at all Total score: 0 Depression Screening Interpretation: Negative Depression Screening Done: Yes 53903 - PHQ-9 Billing: Yes Source: Developed by Drs. Lalito Mcallister, Patricia Hernandez, Basil Mosley and colleagues, with an educational coreen from [employer]. Thrive Questionnaire Date Thrive assessed: 03/13/25 I am a: Patient What is your living situation today?: I have a steady place to live Within the past 12 months, did the food you bought not last and you didn't have the money to get more?: Never true Within the past 12 months, did you worry whether your food would run out before you got money to buy more?: Never true Do you have trouble paying for medicines?: No Do you have trouble getting transportation to medical appointments?: No Do you have trouble paying your heating and electricity bill?: No Do you have trouble taking care of your child, family member or friend?: No Do you have trouble with day-to-day activities such as bathing, preparing meals, shopping, managing finances, etc.?: No Are you currently unemployed and looking for a job?: No Are you interested in more education?: No Please select the resources that you would like help with: None Currently or been in a relationship where the following occur: No concerns reported THRIVE Score: 0 AUDIT C Alcohol Use Questionnaire (AUDIT-C) 1. How often do you have a drink containing alcohol?: 2-4 times a month 2. How many drinks containing alcohol do you have on a typical day when you are drinking?: 3 or 4 3. How often do you have six or more drinks on one occasion?: Never Total Score: 3 Score Reviewed/Action Taken: No JULIAN-7 AMB Questionnaire JULIAN-7 Date JULIAN - 7 assessed: 03/13/25 Feeling nervous, anxious, or on edge: 0 = Not at all Not being able to stop or control worryin = Not at all Worrying too much about different things: 0 = Not at all Trouble relaxin = Not at all Being so restless that it is hard to sit still: 0 = Not at all Becoming easily annoyed or irritable: 0 = Not at all Feeling afraid as if something awful might happen: 0 = Not at all Total JULIAN-7 score (0-4 normal; 5-9 mild; 10-14 moderate; 15-21 severe): 0 Source: Developed by Drs. Lalito Mcallister, Patricia Hernandez, Basil Mosley and colleagues, with an educational coreen from [employer]. JULIAN-7 Assessment Billing JULIAN-7 Assessment Tool: JULIAN-7 Assessment 10614 Review of Systems Const Details: - Cardiovascular: Denies feeling atrial fibrillation symptoms. - General: Reports being busy and a little overwhelmed at work. All systems reviewed & are unremarkable except as noted in HPI and below Physical exam (Primary Care) Vital Signs: Last Vital Signs Temp 97.8 F 03/13/25 14:38 Pulse 82 03/13/25 14:38 Resp 14 03/13/25 14:38 BP 153/87 H 03/13/25 14:38 Pulse Ox 97 03/13/25 14:38 Oxygen Delivery Method Room Air 03/13/25 14:38 Care Plan Goal for BP management: <140/90 at Goal BMI result Body Mass Index 39.8 Tobacco/Smoking Status: Tobacco use Status Tobacco use date assessed 03/13/25 03/13/25 14:34 Patient Tobacco Use Status Never used Tobacco 03/13/25 14:43 PHQ-9: PHQ-9 Score PHQ-9: Total score 0 03/13/25 14:52 Depression Screening Interpretation: Negative Thrive Assessment: Date of Thrive Assessment Date Thrive assessed 03/13/25 03/13/25 14:34 Currently or been in a relationship where the following occur: No concerns reported Const Other: Appearance: Alert. Oriented X3. No acute distress. Head: Normal external exam. Normocephalic. Atraumatic. Eyes: Pupils are equal, round, and reactive to light. Extraocular movements intact. Conjunctiva and sclera normal. Eyelids normal. Throat: Pharynx normal. Uvula midline. Moist mucous membranes. Neck: Normal inspection. Neck supple. Full range of motion. Cardiovascular: Heart rate is 107, which is fast. Normal heart rhythm. Heart sound normal. No murmurs noted. Pulses normal throughout. Respiratory: No respiratory distress. Painless inspiration. Back: Full range of motion noted. Skin: Skin warm and dry. Normal skin color. Normal skin turgor. No rashes/lesions/lacerations noted. Extremities: Extremities exhibit normal range of motion. Neuro: Oriented X 3. No motor deficit. No sensory deficit. Reflexes normal. Results AMB Hemoglobin A1c AMB Hemoglobin A1c 6.0 % Last Edit by PRACHI Cole on 03/13/25 15:05 Results Reviewed Results Reviewed: - Labs: Complete blood count normal, kidney function normal, PSA normal, vitamin B12 normal, vitamin D normal, folate normal. - Labs: Liver enzymes slightly elevated, LDL cholesterol at 111 mg/dL, total cholesterol at 171 mg/dL. - Labs: A1c increased from 5.7 to 6.0, indicating progression towards diabetes. Coding Level of Care Code Est Pt Level 4 (67435) Complex EM visit Add On G2211 Diagnoses Persistent atrial fibrillation I48.19 Essential hypertension I10 Pre-diabetes R73.03 Hyperlipidemia E78.5 Elevated liver enzymes R74.8 Colonic polyp K63.5 Additional Codes PHQ-9 - 95815 - PHQ-9 Billing: Yes ([id number]) JULIAN-7 Assessment Billing - JULIAN-7 Assessment Tool: JULIAN-7 Assessment 93462 ([id number]) Assessment & Plan Assessment & Plan (1) Persistent atrial fibrillation: Code(s): I48.19 - Other persistent atrial fibrillation Category: Medical Plan: The patient continues to be managed for atrial fibrillation with medications including amlodipine, metoprolol, lisinopril, hydrochlorothiazide, and Eliquis, under the care of a senior service aide. (2) Essential hypertension: Code(s): I10 - Essential (primary) hypertension Category: Medical Plan: Hypertension is being managed with current medications, and the patient is advised to continue monitoring blood pressure at home. (3) Pre-diabetes: Code(s): R73.03 - Prediabetes Category: Medical Plan: The patient's A1c has increased to 6.0, indicating progression towards diabetes. Dietary modifications and increased monitoring are recommended, with follow-up in three months. (4) Hyperlipidemia: Code(s): E78.5 - Hyperlipidemia, unspecified Category: Medical Plan: LDL cholesterol is slightly elevated at 111 mg/dL. Continued dietary management is advised. (5) Elevated liver enzymes: Code(s): R74.8 - Abnormal levels of other serum enzymes Category: Medical Plan: Liver enzymes are slightly elevated, and continued monitoring is recommended. (6) Colonic polyp: Code(s): K63.5 - Polyp of colon Category: Medical Plan: The patient is due for a colonoscopy due to a history of polyps, and a referral to gastroenterology is planned. Plan Plan Patient was informed and verbally consented to the use of an ambient scribe for clinic note documentation during this visit. 1. Atrial Fibrillation The patient continues to be managed for atrial fibrillation with medications including amlodipine, metoprolol, lisinopril, hydrochlorothiazide, and Eliquis, under the care of a senior service aide. 2. Hypertension Hypertension is being managed with current medications, and the patient is advised to continue monitoring blood pressure at home. 3. Prediabetes The patient's A1c has increased to 6.0, indicating progression towards diabetes. Dietary modifications and increased monitoring are recommended, with follow-up in three months. 4. Hyperlipidemia LDL cholesterol is slightly elevated at 111 mg/dL. Continued dietary management is advised. 5. Elevated Liver Enzymes Liver enzymes are slightly elevated, and continued monitoring is recommended. 6. Colon Polyps The patient is due for a colonoscopy due to a history of polyps, and a referral to gastroenterology is planned. During the visit, we discussed the management of atrial fibrillation, hypertension, and prediabetes. I emphasized the importance of medication adherence and lifestyle modifications, particularly dietary changes to manage prediabetes and hyperlipidemia. We also reviewed the need for regular monitoring of blood pressure and blood glucose levels. A referral to gastroenterology for a colonoscopy was planned due to the patient's history of polyps. Orders: Orders AMB Hemoglobin A1c Today Z13.9 - Encounter for screening, unspecified Referrals Gastroenterology Referral Z12.11 - Encounter for screening for malignant neoplasm of colon Patient Instructions: - Continue taking all prescribed medications as directed. - Monitor blood pressure regularly at home and report any significant changes. - Follow a healthy diet to manage blood sugar and cholesterol levels. - Schedule a follow-up appointment in three months to reassess A1c levels. - Arrange for a colonoscopy with gastroenterology due to history of polyps.
[2025-03-13 14:38] VITALS: BP 153/87; PULSE 82; RESP 14; TEMP 36.6; O2SAT 97; BMI 39.8
[2025-03-13 15:16] VITALS: BP 140/93
== END 2025-03-13 15:11 | disposition home or self-care (01) ==
LOC: HO.HMCSH 14:34
PROVIDERS: PCP Internal Medicine; Visit Provider Physician Assistant Medical
DX: I48.19 Other persistent atrial fibrillation (principal); I10 Essential (primary) hypertension; R73.03 Prediabetes; E78.5 Hyperlipidemia, unspecified; R74.8 Abnormal levels of other serum enzymes; K63.5 Polyp of colon; Z13.9 Encounter for screening, unspecified

== ENCOUNTER → 2025-03-13 14:34 | Outpatient (BNVA) | payer OTHER, SELFPAY | PROVIDERS: PCP Internal Medicine; Visit Provider Physician Assistant Medical | DX: I48.19 Other persistent atrial fibrillation (principal); I10 Essential (primary) hypertension; R73.03 Prediabetes; E78.5 Hyperlipidemia, unspecified; R74.8 Abnormal levels of other serum enzymes; K63.5 Polyp of colon; Z79.01 Long term (current) use of anticoagulants; Z79.899 Other long term (current) drug therapy; Z13.31 Encounter for screening for depression; Z13.39 Encounter for screening examination for other mental health and behavioral disorders | CPT/HCPCS: 83036; 96127 ==